=== PATIENT | male | born 1965 | race African-American/Black ===

== ENCOUNTER 2023-07-11 18:09 | Emergency (ER) | payer BC, SELFPAY ==
--- NOTE | ~2023-07-11 | CT_ITS ---
EXAMINATION: CT ABDOMEN AND PELVIS WITHOUT CONTRAST CLINICAL INFORMATION: Left lower quadrant abdominal pain radiating to back. COMPARISON: None available. TECHNIQUE: Multidetector volumetric imaging was performed from the superior aspect of the liver through the pubic symphysis. Sagittal and coronal reformatted images were obtained on the technologist's workstation. This CT examination was performed using dose optimization techniques as appropriate, variously including the following: *Automated exposure control *Adjustment of mA and/or kV according to patient size (this includes techniques or standardized protocols for targeted exams where dose is matched to indication/reason for exam; i.e. extremities or head) *Use of iterative reconstruction technique DLP: 620 mGy-cm FINDINGS: LUNG BASES: There is a 3 mm nodule thickening along the right minor fissure. The lung bases are clear. There is mild elevation left hemidiaphragm. Heart size is normal with mild to moderate coronary artery calcifications. LIVER, GALLBLADDER, AND BILIARY TREE: The liver is normal in size, shape, and attenuation. There is an ill-defined hypodensity left hepatic lobe.. The gallbladder is unremarkable with no evidence of radiopaque gallstones, gallbladder wall thickening, or obvious pericholecystic inflammatory changes. PANCREAS: Unremarkable. SPLEEN: Unremarkable. ADRENAL GLANDS: Unremarkable. KIDNEYS AND URETERS: The kidneys are normal in size, shape, and attenuation. No hydronephrosis, hydroureter, or calculi seen. No perinephric stranding. There is a 4.6 cm hypodensity consistent with a simple cyst. No further workup needed. BLADDER: Unremarkable. GASTROINTESTINAL TRACT: There is scattered stool, diverticula and gas seen throughout the colon without significant distention. The small bowel loops are normal caliber. Appendix is normal caliber. No inflammatory process or free fluid seen. ABDOMINAL WALL: No significant hernia is appreciated. LYMPH NODES: Normal. VASCULAR: Unremarkable. PELVIC VISCERA: Unremarkable. OSSEOUS STRUCTURES: Unremarkable. CT/CT abdomen pelvis wo IV con IMPRESSION: 1. No acute intra-abdominal process seen. 2. Colonic diverticulosis without diverticulitis. Mild constipation. 3. No radiopaque urolith or hydroureteronephrosis. 4. There is an ill-defined hypodensity left hepatic lobe. Correlate with ultrasound Fleischner guidelines were followed.
[2023-07-11 18:30] VITALS: BP 170/88; PULSE 72; RESP 18; TEMP 36.7; O2SAT 95; BMI 32.7
--- NOTE | 2023-07-11 18:30 | ED_ITS ---
HPI - Abdominal Pain General Chief Complaint: General Medical Stated Complaint: referred by UC for abd pain Time Seen by Provider: 07/11/23 21:14 Source: patient Mode of arrival: ambulatory Limitations: no limitations History of Present Illness HPI narrative: Patient with no significant past medical history noticed abdominal pain in the left upper quadrant with pain in back last 10 days actual onset increases on movement no nausea no vomiting no diarrhea no constipation patient also noticed small rash in the back few days ago. Denies any kidney stone no urinary complaints no fever no chills patient never had similar pain in the past Related Data Previous Rx's Medication Instructions Recorded tramadol 50 mg tablet 50 mg PO Q6H PRN pain #20 tabs 07/11/23 Allergies Allergy/AdvReac Type Severity Reaction Status Date / Time No Known Allergies Allergy Verified 07/11/23 18:29 Review of Systems Review of Systems Yes all other systems are reviewed and are negative [facility] Social History Social History Advance Directives: No Advance Directives Information Provided: No Physical Exam ED Vital Signs: Vital Signs - 24 hr 07/11/23 18:30 Temperature 98.1 F Pulse Rate 72 Respiratory Rate 18 Blood Pressure 170/88 H Pulse Oximetry 95 Oxygen Delivery Method Room Air BMI result Body Mass Index 32.7 Appearance: Alert. Oriented X3. No acute distress. Eyes: PERRLA, No Nystagmus ENT: Pharynx normal. Oral Mucosa moist Neck: Normal inspection. Neck supple. CVS: Normal heart rate and rhythm. Pulses normal. Respiratory: No respiratory distress. Equal air entry bilateral, no wheezing/rales/rhonchi Abdomen: Soft, mild deep tenderness left upper abdomen no guarding no rebound tenderness Bowel sounds are present, no mass palpable, no CVA tenderness Skin: Skin warm and dry. Small scratch duc at the left lumbar area no vesicle Extremities: No lower extremity edema. No calf tenderness Neuro: Oriented X 3. Course Course Course Narrative: RME: 58 year-old M w/ PMHx hernia presenting to the ED c/o LLQ abdominal pain radiating to back x 1.5wks ago. Pain is constant. +urinary frequency. Also reports rash, admits pain started before rash. Was sent in by Urgent Care who also recommended STD testing. denies fever, N/V/D, hematuria, dysuria + LLQ abdominal tenderness, +crusting/erythematous rash to L low back, not crossing midline ?shingles Labs, UA, CT NG, CT AP, viral testing ordered Full HPI, ROS and PE to be performed by primary ED provider. Medical Decision Making Medical Decision Making [facility] Narrative: Patient with nonspecific left upper abdominal pain and back pain likely referred pain from the back CT scan negative for acute, discharge patient home on tramadol pain management Differential Diagnosis Differential Diagnoses: The differential diagnosis associated with the presentation includes Kidney stone/diverticulitis/muscular pain/lumbar strain/UTI Lab Data [facility] Lab Attestation statement: I reviewed the patient's lab results. 07/11/23 19:12 07/11/23 19:12 Labs: Lab Results 07/11/23 Range/Units 19:12 WBC 7.1 (4.8-10.8) X10*3/uL RBC 4.45 L (4.60-5.80) X10*6/uL Hgb 13.5 L (14.0-18.0) g/dl Hct 39.7 L (42.0-52.0) % MCV 89.2 (80.0-98.0) fL MCH 30.3 (27.0-33.0) pg MCHC 34.0 (31.0-36.0) g/dl RDW 13.3 (11.0-16.0) % Plt Count 219 (160-400) X10*3/uL MPV 10.1 (9.4-12.4) fL Immature Gran % (Auto) 0.1 (0.0-0.4) % Neut % (Auto) 64.1 (45-73) % Lymph % (Auto) 17.6 L (20-40) % [place] % (Auto) 15.9 H (2-11) % Eos % (Auto) 1.7 (0-4) % Baso % (Auto) 0.6 (0-2) % Lymph # (Auto) 1.3 (1.2-4.9) X10*3/uL [place] # (Auto) 1.1 (0.1-1.2) X10*3/uL Eos # (Auto) 0.1 (0.0-0.4) X10*3/uL Baso # (Auto) 0.0 (0.0-0.2) X10*3/uL Abs Immat Gran (auto) 0.01 (0.00-0.03) X10*3/uL Absolute Neuts (auto) 4.6 (2.0-8.3) x10*3/uL Absolute Nucleated RBC 0.000 (0.0-0.012) X10*3/uL Nucleated RBC % (auto) 0.0 (0.0-0.2) /100WBC Sodium 140 (135-145) mmol/L Potassium 4.3 (3.3-5.1) mmol/L Chloride 108 (96-108) mmol/L Carbon Dioxide 24 (22-29) mmol/L Anion Gap 12 (12-20) BUN 15 (9-16) mg/dL Creatinine 1.01 (0.5-1.4) mg/dL Estim Creat Clear Calc 85.3 Estimated GFR > 60 Random Glucose 84 (60-115) mg/dL Calcium 9.5 (8.4-10.2) mg/dL Magnesium 2.0 (1.6-2.6) mg/dL Total Bilirubin 0.3 (0.0-1.0) mg/dL Direct Bilirubin 0.1 (0.0-0.5) mg/dL AST 49 H (5-37) U/L ALT 22 (0-40) U/L Alkaline Phosphatase 63 (39-117) U/L Total Protein 7.7 (6.5-8.0) g/dL Albumin 4.0 (3.5-5.0) g/dL Lipase 41 (8-78) U/L Urine Color Yellow Urine Appearance Clear Urine pH 5.5 (5.0-9.0) Ur Specific [place] 1.025 (1.005-1.025) Urine Protein Negative (Neg-Trace) mg/dL Urine Glucose (UA) Negative (Negative) mg/dL Urine Ketones Trace (Negative) mg/dL Urine Blood Negative (Negative) Urine Nitrite Negative (Negative) Ur Leukocyte Esterase Negative (Negative) COVID-19 ([place]) Negative (Negative) COVID-19 Clin Com See Note Influenza Type A (ERIC) Negative (Negative) Influenza Type B (ERIC) Negative (Negative) Influenza A & B Note See Note Independent Interpretation I performed an independent interpretation of an: CT Scan Radiology Impression Discussion of test interpretation with radiology: I have reviewed the radiologist's reading. Discharge Plan Discharge Clinical Impression: Abdominal pain of unknown cause Patient Disposition: Home, Self-Care Instructions: Abdominal Pain (ED) Additional Instructions: Cause of pain is not clear likely musculoskeletal come from the back Your CT scan of the abdomen did not show any acute pathology Take pain medication as prescribed Follow-up with PCP if any concerns Keep an eye on the rash in the back seek attention come in will apply bacitracin at the rash and do not scratch Prescriptions: New tramadol 50 mg tablet 50 mg PO Q6H PRN (Reason: pain) Qty: 20 0RF
[2023-07-11 19:18] LABS: MANUAL DIFF FLAG NO
[2023-07-11 19:20] LABS: Basophils Percent Auto 0.6 % (0-2); Eosinophils Absolute Auto 0.1 X10*3/uL (0.0-0.4); Eosinophils Percent Auto 1.7 % (0-4); Hematocrit 39.7 % (42.0-52.0); Hemoglobin 13.5 g/dl (14.0-18.0); Imm Gran Abs Auto 0.01 X10*3/uL (0.00-0.03); Imm Gran Pct Auto 0.1 % (0.0-0.4); Lymphocytes Absolute Auto 1.3 X10*3/uL (1.2-4.9); Lymphocytes Percent Auto 17.6 % (20-40); Mean Corpuscular Hemoglobin 30.3 pg (27.0-33.0); Mean Corpuscular Volume 89.2 fL (80.0-98.0); Mean Platelet Volume 10.1 fL (9.4-12.4); Monocytes Absolute Auto 1.1 X10*3/uL (0.1-1.2); Monocytes Percent Auto 15.9 % (2-11); Neutrophils Absolute Auto 4.6 x10*3/uL (2.0-8.3); Neutrophils Percent Auto 64.1 % (45-73); Platelet Count 219 X10*3/uL (160-400); Red Blood Count 4.45 X10*6/uL (4.60-5.80); Red Cell Distribution Width 13.3 % (11.0-16.0); White Blood Count 7.1 X10*3/uL (4.8-10.8)
[2023-07-11 19:21] LABS: Appearance Urine Clear; Color Urine Yellow; Glucose Urine UA Negative (Negative); Leukocyte Esterase Urine Negative (Negative); Nitrite Urine Negative (Negative); PH 5.5 (5.0-9.0); Specific Gravity - Urine 1.025 (1.005-1.025); Urine Blood Negative (Negative); Urine Ketones Trace mg/dL (Negative); Urine Protein Negative (Neg-Trace)
[2023-07-11 19:34] LABS: IDNOW Serial# 08D9AD1C; Influenza A Negative (Negative); Influenza B2 Negative (Negative)
[2023-07-11 19:35] LABS: Alanine Aminotransferase 22 U/L (0-40); Alkaline Phosphatase 63 U/L (39-117); Anion Gap 12 (12-20); Aspartate Amino Transferase 49 U/L (5-37); Bilirubin Direct 0.1 mg/dL (0.0-0.5); Bilirubin Total 0.3 mg/dL (0.0-1.0); Blood Urea Nitrogen 15 mg/dL (9-16); COVID-19 Test Negative (Negative); Calcium 9.5 mg/dL (8.4-10.2); Carbon Dioxide 24 mmol/L (22-29); Chloride 108 mmol/L (96-108); Creatinine Clr Calc Pharmacy 85.3; Estimated Glomerular Filt Rate > 60; Glucose Random 84 mg/dL (60-115); IDNOW Serial# 152EDE1D; Lipase 41 U/L (8-78); Potassium 4.3 mmol/L (3.3-5.1); Sodium 140 mmol/L (135-145); Total Protein 7.7 g/dL (6.5-8.0)
[2023-07-11] MEDS: oxyCODONE HCl Immed Release 5 MG TABLET 10 MG PO (22:01)
[2023-07-11] MEDS: Bacitracin Oint 0.9 GM PACKET 1 APPL TOPICAL (22:01)
--- NOTE | 2023-07-11 22:04 | PC.NURSE ---
Primary Nurse is was Rima, this RN only reviewed discharge instructions with pt and medicated pt per primary nurse Rima, no sign of distress.
[2023-07-12 01:18] LABS: CT PCR NOT DETECTED (Not Detect.); NG PCR NOT DETECTED (Not Detect.)
== END 2023-07-11 22:12 | disposition home or self-care (01) ==
PROVIDERS: Physician Assistant; Emergency Provider Internal Medicine
DX: R10.12 Left upper quadrant pain (principal); Z11.52 Encounter for screening for COVID-19; R35.0 Frequency of micturition; R21 Rash and other nonspecific skin eruption; R74.01 Elevation of levels of liver transaminase levels
CPT/HCPCS: 0353U; 36415; 74176; 80048; 80076; 81003; 83690; 83735; 85025; 87502; 87635; 99283; 99284

== ENCOUNTER 2023-07-14 10:32 | Inpatient (IN) | payer BC, SELFPAY ==
[2023-07-14] VITALS (11 sets, daily range): BP systolic 153–178; BP diastolic 83–101; PULSE 72–86; RESP 18–24; TEMP 36.1–39.4; O2SAT 92–97; BMI 32.3; BMI 33.1
--- NOTE | ~2023-07-14 | XR_ITS ---
EXAMINATION: XR CHEST CLINICAL INFORMATION: Seizure with fall of abdominal trauma COMPARISON: None available. TECHNIQUE: AP portable view of the chest was obtained. FINDINGS: There is elevation of the left hemidiaphragm. There is some discoid atelectatic change seen at the left lung base. The cardiopericardial silhouette appears mildly enlarged. No evidence of pulmonary edema. No pneumothorax or significant pleural effusion. XR/XR chest 1V IMPRESSION: Elevation of the left hemidiaphragm without significant acute parenchymal disease appreciated.
--- NOTE | ~2023-07-14 | CT_ITS ---
EXAMINATION: CT HEAD WITHOUT CONTRAST CT CERVICAL SPINE WITHOUT CONTRAST CLINICAL INFORMATION: Syncope. Fall. COMPARISON: None available. TECHNIQUE: Contiguous axial imaging was performed from the skull base to vertex without intravenous administration of contrast. Contiguous axial imaging was performed from the upper chest through the skull base without intravenous administration of contrast. Coronal and sagittal reformats were obtained at the acquisition workstation. This CT examination was performed using dose optimization techniques as appropriate, variously including the following: *Automated exposure control. *Adjustment of mA and/or kV according to patient size (this includes techniques or standardized protocols for targeted exams where dose is matched to indication/reason for exam; i.e. extremities or head). *Use of iterative reconstruction technique. DLP: 1472 mGy-cm FINDINGS: Head: There is no evidence of acute intracranial hemorrhage or edematous territorial infarction. Canalse-white matter differentiation is preserved. There appears to be a hyperattenuating streak coursing along/through the lateral aspect of the left cerebellar hemisphere. This does not not follow a specific anatomic structure suggestive of artifact versus an underlying developmental venous anomaly. A few foci of hypoattenuation in the periventricular and deep white matter are consistent with mild microangiopathy. The ventricles are normal in morphology and size. No evidence for obstructive hydrocephalus. No abnormal mass effect or midline shift. No extra-axial fluid collections. Mild prominence of the superior ophthalmic veins bilaterally. Moderate subgaleal hematoma along the right posterior vertex, measuring up to 1.1 cm in depth. No associated acute osseous abnormalities. Mild mucosal thickening of the paranasal sinuses. Moderate rightward nasal septal deviation with spurring. The mastoid air cells and middle ear cavities are clear. Cervical Spine: Rotary subluxation of C1 on C2, commiserate with head rotation. The atlantooccipital and atlantoaxial articulations remain well aligned. Straightening of the normal cervical lordosis. Otherwise, there is anatomic alignment of the vertebral bodies and posterior elements. No evidence of acute fracture or subluxation. The vertebral body heights are maintained. Advanced degenerative disc disease from C3-T1. Moderate degenerative disc disease at C2-C3. Facet and uncovertebral joint arthropathy leads to osseous encroachment on the neural foramina from C3-T1. There is no prevertebral soft tissue swelling. The thyroid gland and remaining cervical soft tissues are within normal limits. The lung apices demonstrate no abnormalities. CT/CT cervical spine wo IV con IMPRESSION: 1. No evidence of acute intracranial hemorrhage or edematous territorial infarction. Mild underlying microangiopathy. 2. No evidence of acute fracture or traumatic subluxation of the cervical spine. Moderate to advanced multilevel degenerative spondyloarthropathy of the cervical spine. 3. Moderate right posterior scalp hematoma. No associated osseous abnormalities.
--- NOTE | ~2023-07-14 | CT_ITS ---
EXAMINATION: CT ABDOMEN AND PELVIS WITH CONTRAST CLINICAL INFORMATION: Pain in abdomen following trauma COMPARISON: 07/11/2023 TECHNIQUE: Multidetector volumetric images were obtained from the superior aspect of the liver through the pubic symphysis following administration 85 mL of Omnipaque 350 intravenous contrast. Sagittal and coronal reformatted images were obtained on the technologist's workstation. Oral contrast: No This CT examination was performed using dose optimization techniques as appropriate, variously including the following: *Automated exposure control *Adjustment of mA and/or kV according to patient size (this includes techniques or standardized protocols for targeted exams where dose is matched to indication/reason for exam; i.e. extremities or head) *Use of iterative reconstruction technique DLP: 871 mGy-cm FINDINGS: LUNG BASES: The visualized lung bases are unremarkable. LIVER, GALLBLADDER, AND BILIARY TREE: Liver is of low attenuation with small cyst in the left lobe of the liver no intrahepatic masses or ductal dilatation. Of The gallbladder is unremarkable with no evidence of radiopaque gallstones, gallbladder wall thickening, or obvious pericholecystic inflammatory changes. PANCREAS: Unremarkable. SPLEEN: Unremarkable. ADRENAL GLANDS: Unremarkable. KIDNEYS AND URETERS: There is cyst in the lower pole stable since previous study, measured 4.8 x 4.0 cm. No evidence of hydroureteronephrosis or nephrolithiasis. BLADDER: Unremarkable. GASTROINTESTINAL TRACT: There are scattered diverticula seen No evidence of diverticulitis. Normal appendix present. Small bowel loops are unremarkable. ABDOMINAL WALL: No evidence of herniations. LYMPH NODES: Mild reactive appearing lymphadenopathy seen in inguinal area bilaterally. VASCULAR: Unremarkable. PELVIC VISCERA: Prostate is enlarged and heterogeneous. OSSEOUS STRUCTURES: Degenerative changes in the lower lumbar spine CT/CT abdomen pelvis w IV con IMPRESSION: 1. No acute abnormalities. 2. Hepatic steatosis. 3. Left renal cyst. 4. Diverticulosis without diverticulitis. 5. Prostatic hypertrophy. Fleischner guidelines were followed.
--- NOTE | ~2023-07-14 | CT_ITS ---
EXAMINATION: CT CHEST WITH CONTRAST CLINICAL INFORMATION: Fall with chest trauma. COMPARISON: None available. TECHNIQUE: Multidetector volumetric CT imaging of the chest was obtained after the administration of 85 mL of Omnipaque 350 intravenous contrast without immediate adverse reactions. Axial MIP volume rendering provided. Sagittal and coronal reformatted images were obtained. This CT examination was performed using dose optimization techniques as appropriate, variously including the following: *Automated exposure control. *Adjustment of mA and/or kV according to patient size (this includes techniques or standardized protocols for targeted exams where dose is matched to indication/reason for exam; i.e. extremities or head). *Use of iterative reconstruction technique. DLP: 257.67 mGy-cm FINDINGS: There is motion artifact throughout the study somewhat limiting evaluation. LUNGS: Central airways are patent. No significant confluent parenchymal disease is identified. There is some atelectasis within the left lower lobe. I cannot comment on parenchymal thickening or possible bronchiectasis due to the breathing artifact. There are a few sub-4 mm densities present. There is a 4 mm density seen along the minor fissure in the right upper lobe on image [address] scan series #7 which may represent a perifissural lymph node. MEDIASTINUM: There is some elevation of the left hemidiaphragm causing mild mediastinal shift to the right. Visualized thyroid unremarkable. Heart normal size. No pericardial effusion. Coronary artery calcification is present. No thoracic aortic aneurysm or dissection. No mediastinal or hilar lymphadenopathy. PLEURA: There is no pleural effusion. No pleural mass or thickening. AXILLA: No lymphadenopathy. UPPER ABDOMEN: There is appearance of low-density lesion within segment 6 of the liver; however, this appears to be related to breathing artifact. Elevation of left hemidiaphragm. OSSEOUS STRUCTURES: No suspicious destructive bony lesions identified. Old healed right second rib fractures seen. Multilevel degenerative disc disease with bridging spurs at multiple levels within the thoracic spine. CT/CT chest w IV con IMPRESSION: Somewhat limited study due to motion artifact. Elevation of the left hemidiaphragm. No acute fracture or destructive bony lesion identified. No pneumothorax or pleural effusion. According to the UPDATED 2017 Fleischner Society recommendations, the advised follow-up imaging for solid nodules < 6 mm is: LOW RISK PATIENT: No routine follow-up. HIGH RISK PATIENT: Optional CT at 12 months. Fleischner guidelines were followed.
--- NOTE | 2023-07-14 11:06 | ED_ITS ---
HPI - Skin/Abscess/Foreign Bdy General Chief complaint: Skin/Abscess/Foreign Body Stated complaint: rash/ R side pain Time Seen by Provider: 07/14/23 11:19 Source: patient Mode of arrival: ambulatory Limitations: no limitations History of Present Illness HPI narrative: This is a 58-year-old male with no known medical history however not regularly followed by a primary care provider representing to the emergency department after being discharged minutes ago. Patient presents after having a witnessed 30 second tonic-clonic seizure, patient was walking out of the department, started seizing, fell, hit his head positive loss of consciousness. Patient was postictal afterwards. Complaining of headache. Immediately when this happened nursing staff and front end provider out to evaluate patient, he was placed in a cervical collar, hard board was used to transfer patient to stretcher and he immediately went to CT scan. He was just seen here for shingles on the left side of his back. Per significant other patient was also seen here on Sunday for some abdominal discomfort. Patient just has not been feeling himself he tells me something is just not right. Patient not on blood thinners. Denies chest pain, shortness of breath, nausea, vomiting, headache, vision changes, dizziness, weakness, abdominal pain. NIH stroke scale 0. GCS of 15 on evaluation Related Data Home Medications Medication Instructions Recorded Confirmed albuterol sulfate 90 mcg/actuation 2 puff inhalation QID PRN wheezing 07/14/23 07/14/23 aerosol inhaler Previous Rx's Medication Instructions Recorded gabapentin 100 mg capsule 100 mg PO TID 10 days #30 caps 07/14/23 prednisone 20 mg tablet 40 mg (2 x 20 mg) PO DAILY 5 days 07/14/23 #10 tabs valacyclovir 1 gram tablet 1,000 mg PO TID 10 days #30 tabs 07/14/23 Allergies Allergy/AdvReac Type Severity Reaction Status Date / Time No Known Allergies Allergy Verified 07/14/23 11:01 Review of Systems 2 Review of Systems: Constitutional : No Weight loss, No Fever, No Chills, No Fatigue, No Malaise ENT/Mouth : No sore throat, No Rhinorrhea Eyes: No Eye Pain, No Swelling, No Redness Cardiovascular : No Chest Pain, No SOB, No Dyspnea on Exertion, No Orthopnea, No Edema, No Palpitations Respiratory : No Cough, No Sputum, No Wheezing Gastrointestinal : No Nausea, No Vomiting, No Diarrhea, No Constipation, No abdominal Pain, No Hematochezia, No Melena Genitourinary : No Dysuria, No Urinary Frequency, No Hematuria, Musculoskeletal : No joint pain, No Myalgias, No Joint Swelling Skin : No Skin Lesions, No rash Neuro : No Weakness, No Numbness, No Dizziness, + Headache Psych : No Anxiety/Panic, No Depression All other systems reviewed and are negative Yes all other systems are reviewed and are negative [facility] Past Medical History Attestation statement: The following information was validated with the patient. Source: old records reviewed and nursing notes reviewed Onset Date is defined in the Problem List Problems that require an onset date and time if occurred within 24 hrs of arrival to the ED Aortic Dissection and Rupture; Neurologic impairment; Cardiopulmonary Arrest; Endotracheal Intubation; Insertion or Replacement of Mechanical Circulatory Assist Device Medical History No pertinent past medical history Social History Social History Household Members: Children Housing: House Do you presently have visiting nurse or other home services: No Alcohol intake: current Alcohol intake frequency: holidays/special occasions only Patient Tobacco Use Status: Never used Tobacco Smoked in Last 30 Days: No Use of substances other than those prescribed or required for medical reasons: Yes Substance Use Type: Marijuana Substance Use Frequency: Daily Currently Displaying Signs/Symptoms of Drug Intoxication Withdrawal: No Any prior treatment program specific to substance use: No Have you been hit, kicked, punched, or otherwise hurt by someone within the past year? If so, by whom?: No Do you feel safe in your current relationship?: No Current Relationship Is there a partner from a previous relationship who is making you feel unsafe now?: No Are you made to feel afraid or neglected: No Advance Directives: No Advance Directives Information Provided: No Do you have thoughts of harming others: None Do you have a plan to hurt others: No Plan Recently lost weight without trying: No Nutrition Risks: No Nutritional Risk Poor oral hygiene: No Physical Exam 2 Vital Signs: Vital Signs: Last Vital Signs Temp 96.9 F 07/14/23 21:38 Pulse 72 07/14/23 21:38 Resp 18 01/13/24 21:38 BP 176/84 H 07/14/23 21:38 Pulse Ox 94 07/14/23 21:38 O2 Del Method Room Air 07/14/23 21:38 BMI result Body Mass Index 32.3 vss Appearance: Alert.? Oriented X3.? No acute distress.? Head: Normocephalic, atraumatic, no step-offs or deformities. Large hematoma right side of the occiput region. Eyes: Pupils equal, round and reactive to light.? ENT: Pharynx normal.? Neck: Normal inspection.? Neck supple.?No meningeal signs CVS: Normal heart rate and rhythm.? Pulses normal.? Respiratory: No respiratory distress.? Breath sounds normal.? Abdomen: Soft and nontender.? + dermatomal distribution of vesicles on an erythematous base, tender to palpation wrapping around to the back around T10 Skin: Skin warm and dry.? Normal skin color.? Normal skin turgor.? Extremities: No lower extremity edema.? No calf ttp. 5/5 strength to bilateral upper and lower extremities Back: No midline tenderness, no C-spine tenderness, full range of motion, no CVA tenderness bilaterally Neuro: Oriented X 3.? No motor deficit.? No sensory deficit. CN 2-12 intact Course Course Course Narrative: This is a 58-year-old male, with no known medical problems but does not regularly see a doctor, present to the emergency department with complaints of painful, itchy rash on his left flank since July 10. On arrival, vital signs within normal limits, he denies any chest pain, shortness for breath, headaches, dizziness, lightheadedness, abdominal pain, nausea, vomiting or diarrhea. He denies history of similar symptoms in the past. Examination revealing vesicular cluster like rash on left flank that is tender to palpation, no surrounding erythema or induration. Rash appears to be herpes zoster. I discussed these findings with patient and . Patient was discharged with a prescription for valacyclovir, gabapentin, and prednisone. Patient then was leaving the waiting room when suddenly I heard a large noise where I immediately reported to the area and patient was on his back, unresponsive but had a pulse, appeared to have a syncopal episode followed by seizure-like activity for approximately 30 seconds. He was placed in a cervical collar and we will obtain to bed using a backboard and he immediately reported back into ED room 5 for further evaluation and workup. Reevaluation(s) Reevaluation #1: Clarification- per staff who witnessed event sounds like syncope followed by seizure after trauma. Time: 12:05 Reevaluation #2: CBC unremarkable. Chemistry with slight increase in creatinine fluids ordered. Troponin 16.7 repeat troponin pending. EKG nonischemic. Normal coags i dont suspect PE. CT head with a moderate right posterior scalp hematoma no associated osseous injuries. No evidence of acute fracture traumatic subluxation of the cervical spine. Left hemidiaphragm elevated CT chest, abdomen and pelvis pending. Plan is hospital admission. Some scans are still pending. Dr. Donnelly hospitalist aware Time: 15:36 Reevaluation #3: My attending to take over this case Dr. Colbert. Hospitalist aware. Medications Administered Generic Name Dose Route Start Last Admin Trade Name Freq PRN Reason Stop Dose Admin Gabapentin 100 mg 07/14/23 21:00 07/14/23 21:11 Gabapentin 100 Mg Capsule PO 100 mg TID TYRONE Administration Sodium Chloride 1,000 mls @ 100 mls/hr 07/14/23 16:00 07/14/23 17:37 Ns IVCONT 100 mls/hr .Q10H TYRONE Administration Acyclovir Sodium 750 mg/ 265 mls @ 265 mls/hr 07/14/23 20:00 07/14/23 21:39 Sodium Chloride IV Infused Q8H TYRONE Infusion Prednisone 40 mg 07/14/23 16:05 07/14/23 16:41 Prednisone 20 Mg Tablet PO 40 mg DAILY TYRONE Administration Sodium Chloride 3 ml 07/14/23 16:00 07/14/23 21:12 0.9 % Sodium Chloride Flush 3 Ml Syringe IVFLUSH 3 ml QSHIFT TYRONE Administration Discontinued Medications Generic Name Dose Route Start Last Admin Trade Name Freq PRN Reason Stop Dose Admin Acetaminophen 975 mg 07/14/23 16:18 07/14/23 16:41 Acetaminophen 325 Mg Tablet PO 07/14/23 16:19 975 mg ONCE ONE Administration Acetaminophen 650 mg 07/14/23 18:15 07/14/23 18:30 Acetaminophen 325 Mg Tablet PO 07/14/23 18:16 650 mg ONCE ONE Administration Sodium Chloride 1,000 mls @ 999 mls/hr 07/14/23 15:45 07/14/23 17:37 Ns IV 07/14/23 16:45 Infused .Q1H1M TYRONE Infusion Vancomycin HCl 2,000 mg in 520 mls @ 250 mls/hr 07/14/23 16:26 07/14/23 19:51 Vancomycin/Ns IV 07/14/23 18:30 Infused ONCE ONE Infusion Iohexol 85 ml 07/14/23 14:27 07/14/23 14:28 Iohexol 350 Mg/Ml 100 Ml Infus..Btl IV 07/14/23 14:28 85 ml ONCE ONE Administration Lidocaine HCl 5 ml 07/14/23 19:02 07/14/23 20:21 Lidocaine Hcl 1 % Mpf 5 Ml Vial INFILTRATI 07/14/23 19:03 5 ml ONCE ONE Administration Lorazepam 2 mg 07/14/23 11:37 07/14/23 11:54 Lorazepam 2 Mg/Ml Vial IVPUSH 07/14/23 11:38 2 mg ONCE ONE Administration Medical Decision Making Medical Decision Making [facility] Narrative: 58-year-old male presents status post witnessed seizure. Was just seen here for shingle Physical exam significant for rash in a dermatomal fashion T10 to his left side and a large occipital hematoma History and physical exam concerning for new onset seizures likely in the setting of acute viral illness. Will rule out metabolic derangements, urinary infection. Intracranial hemorrhage, traumatic injury to neck. No signs of traumatic injury to chest, abdomen or pelvis. Unlikely meningitis/encephalitis Plan- labs,imaging 17:30 patient with vesicular lesion on the left side of the abdomen and the back in a dermatomal fashion also has lesion in the left inguinal area possible staph infection in the inguinal area with shingles samples were taken for culture from inguinal area sudden vancomycin had a temperature of 102.7 was given Tylenol will give ibuprofen case discussed with hospitalist will doze spinal tap to rule out a septic spinal meningitis 193 spinal tap was done in sitting position L4 aseptic clear fluid drainined and sent to the lab Differential Diagnosis Differential Diagnoses: The differential diagnosis associated with the presentation includes History and physical exam concerning for new onset seizures likely in the setting of acute viral illness. Will rule out metabolic derangements, urinary infection. Intracranial hemorrhage, traumatic injury to neck. No signs of traumatic injury to chest, abdomen or pelvis. Unlikely meningitis/encephalitis Admission/Observation Consideration of admission/observation: Escalation of care including admission/observation considered Likely Consult Healthcare Provider Management of the patient was discussed with: Hospitalist Lab Data MDM Lab Attestation statement: I reviewed the patient's lab results. CSF positive for varicella zoster 07/14/23 11:51 07/14/23 11:51 Labs: Lab Results 07/14/23 07/14/23 Range/Units 11:44 11:51 WBC 8.2 (4.8-10.8) X10*3/uL RBC 4.83 (4.60-5.80) X10*6/uL Hgb 14.5 (14.0-18.0) g/dl Hct 43.4 (42.0-52.0) % MCV 89.9 (80.0-98.0) fL MCH 30.0 (27.0-33.0) pg MCHC 33.4 (31.0-36.0) g/dl RDW 13.3 (11.0-16.0) % Plt Count 202 (160-400) X10*3/uL MPV 10.2 (9.4-12.4) fL Immature Gran % (Auto) 0.2 (0.0-0.4) % Neut % (Auto) 59.9 (45-73) % Lymph % (Auto) 25.1 (20-40) % [place] % (Auto) 14.0 H (2-11) % Eos % (Auto) 0.2 (0-4) % Baso % (Auto) 0.6 (0-2) % Lymph # (Auto) 2.1 (1.2-4.9) X10*3/uL [place] # (Auto) 1.2 (0.1-1.2) X10*3/uL Eos # (Auto) 0.0 (0.0-0.4) X10*3/uL Baso # (Auto) 0.1 (0.0-0.2) X10*3/uL Abs Immat Gran (auto) 0.02 (0.00-0.03) X10*3/uL Absolute Neuts (auto) 4.9 (2.0-8.3) x10*3/uL Absolute Nucleated RBC 0.000 (0.0-0.012) X10*3/uL Nucleated RBC % (auto) 0.0 (0.0-0.2) /100WBC Smear Tech's Comments VERIFIED ESR 16 H (0-15) MM/HR PT 13.5 H (11.1-13.3) SEC INR 1.1 (0.9-1.1) Sodium 137 (135-145) mmol/L Potassium 3.8 (3.3-5.1) mmol/L Chloride 106 (96-108) mmol/L Carbon Dioxide 22 (22-29) mmol/L Anion Gap 13 (12-20) BUN 14 (9-16) mg/dL Creatinine 1.49 H (0.5-1.4) mg/dL Estim Creat Clear Calc 55.6 Estimated GFR 48 POC Glucose 107 (60-115) mg/dL Random Glucose 117 H (60-115) mg/dL Calcium 9.2 (8.4-10.2) mg/dL Total Bilirubin 0.7 (0.0-1.0) mg/dL Direct Bilirubin 0.2 (0.0-0.5) mg/dL AST 50 H (5-37) U/L ALT 21 (0-40) U/L Alkaline Phosphatase 63 (39-117) U/L Troponin I High Sens 16.7 (<3.5-35.0) ng/L C-Reactive Protein 0.43 (< or = 0.50) mg/dL Total Protein 7.7 (6.5-8.0) g/dL Albumin 4.1 (3.5-5.0) g/dL Independent Interpretation I performed an independent interpretation of an: EKG (Vent. Rate : 073 BPM Atrial Rate : 073 BPM P-R Int : 192 ms QRS Dur : 092 ms QT Int : 386 ms P-R-T Axes : 058 -11 066 degrees QTc Int : 425 ms Normal sinus rhythm Inferior infarct , age undetermined Abnormal ECG No previous ECGs available), Plain X-Ray (XR/XR chest 1V IMPRESSION: Elevation of the left hemidiaphragm without significant acute parenchymal disease appreciated.) and CT Scan (CT/CT head/brain wo IV con IMPRESSION: 1. No evidence of acute intracranial hemorrhage or edematous territorial infarction. Mild underlying microangiopathy. 2. No evidence of acute fracture or traumatic subluxation of the cervical spine. 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 Radiologist Impression: XR/XR chest 1V IMPRESSION: Elevation of the left hemidiaphragm without significant acute parenchymal disease appreciated. CT/CT head/brain wo IV con IMPRESSION: 1. No evidence of acute intracranial hemorrhage or edematous territorial infarction. Mild underlying microangiopathy. 2. No evidence of acute fracture or traumatic subluxation of the cervical spine. Moderate to advanced multilevel degenerative spondyloarthropathy of the cervical spine. 3. Moderate right posterior scalp hematoma. No associated osseous abnormalities. CT/CT cervical spine wo IV con IMPRESSION: 1. No evidence of acute intracranial hemorrhage or edematous territorial infarction. Mild underlying microangiopathy. 2. No evidence of acute fracture or traumatic subluxation of the cervical spine. Moderate to advanced multilevel degenerative spondyloarthropathy of the cervical spine. 3. Moderate right posterior scalp hematoma. No associated osseous abnormalities. Chronic Conditions Patient?s care impacted by: Other (poor medical care / not routinely followed by PCP ) Procedures Lumbar Puncture Time Out Performed: Yes Patient Position: upright Skin Prep: Povidone-Iodine 1% Local Anesthetic: lidocaine 2% Amount of anesthesia used (mL): 5 Spinal Needle Gauge: 20G Interspace Used: L3-L4 Fluid Initially Obtained: clear Complications: none Critical Care Time Critical Care Time Critical Care Time: Yes Total Critical Care Time: 45 Attestation: I attest to this time spent taking care of the patient, obtaining history, physical, reviewing labs, imaging, speaking to my attending Discharge Plan Discharge Clinical Impression: Syncope, Seizure, ARCELIA (acute kidney injury), Herpes zoster with meningitis Patient Disposition: Admitted As Inpatient Interventions: Admission Worksheet (ED) Last Done: 07/14/23 20:00
--- NOTE | 2023-07-14 11:20 | PC.NURSE ---
pt was being discharged from triage-came in for rash, seen by PA and disposed to go home- diagnosed with shingles. pt denies sob/chest pain just pain/itchiness on the site of rash-left side of the ribs/abd/back area. Pt just walked into the waiting room, this rn heard large thump noise, pt was found on the ground and having a seizure that lasted about 30seconds, pt did hit head/diaphoretic, pt does not have hx of seizures.
--- NOTE | 2023-07-14 11:30 | ECG_ITS ---
Test Reason : SYNCOPE Blood Pressure : / mmHG Vent. Rate : 073 BPM Atrial Rate : 073 BPM P-R Int : 192 ms QRS Dur : 092 ms QT Int : 386 ms P-R-T Axes : 058 -11 066 degrees QTc Int : 425 ms Normal sinus rhythm Inferior infarct , age undetermined Abnormal ECG No previous ECGs available Referred By: Gretchen Vail Electronically Signed By:ROSY REARDON MD
[2023-07-14] MEDS: LORazepam 2 MG/ML VIAL IVPUSH (11:54)
[2023-07-14 11:55] LABS: Glucose, Whole Blood 107 mg/dL (60-115)
--- NOTE | 2023-07-14 12:03 | PC.NURSE ---
Patient brought to ED [address] with collar in place. Alert and responsive with at bedside. Patient complains of head pain- states pain is not from fall but the same head pain he has had all day. Patient with hematoma to right back side of head. Ice pack applied to site of hemotoma. Seizure pads placed, medicated per augFabiola Matthias, able to follow commands. VSS, nrs on monitor
--- NOTE | 2023-07-14 12:06 | PC.NURSE ---
Per patient has been complaining of headaches. Has htn but does not take medications as prescribed
[2023-07-14 12:09] LABS: Basophils Absolute Auto 0.1 X10*3/uL (0.0-0.2); Basophils Percent Auto 0.6 % (0-2); Eosinophils Percent Auto 0.2 % (0-4); Hematocrit 43.4 % (42.0-52.0); Hemoglobin 14.5 g/dl (14.0-18.0); Imm Gran Abs Auto 0.02 X10*3/uL (0.00-0.03); Imm Gran Pct Auto 0.2 % (0.0-0.4); Lymphocytes Absolute Auto 2.1 X10*3/uL (1.2-4.9); Lymphocytes Percent Auto 25.1 % (20-40); MANUAL DIFF FLAG SCAN; Mean Corpuscular HGB Conc 33.4 g/dl (31.0-36.0); Mean Corpuscular Volume 89.9 fL (80.0-98.0); Mean Platelet Volume 10.2 fL (9.4-12.4); Monocytes Absolute Auto 1.2 X10*3/uL (0.1-1.2); Neutrophils Absolute Auto 4.9 x10*3/uL (2.0-8.3); Neutrophils Percent Auto 59.9 % (45-73); Platelet Count 202 X10*3/uL (160-400); Red Blood Count 4.83 X10*6/uL (4.60-5.80); Red Cell Distribution Width 13.3 % (11.0-16.0); SCAN SMEAR FLAG 1; White Blood Count 8.2 X10*3/uL (4.8-10.8)
[2023-07-14 12:11] LABS: INTERNATIONAL NORM RATIO 1.1 (0.9-1.1); Prothrombin Time 13.5 SEC (11.1-13.3)
[2023-07-14 12:22] LABS: Alanine Aminotransferase 21 U/L (0-40); Albumin Level 4.1 g/dL (3.5-5.0); Alkaline Phosphatase 63 U/L (39-117); Anion Gap 13 (12-20); Aspartate Amino Transferase 50 U/L (5-37); Bilirubin Direct 0.2 mg/dL (0.0-0.5); Bilirubin Total 0.7 mg/dL (0.0-1.0); Blood Urea Nitrogen 14 mg/dL (9-16); Calcium 9.2 mg/dL (8.4-10.2); Carbon Dioxide 22 mmol/L (22-29); Chloride 106 mmol/L (96-108); Creatinine Clr Calc Pharmacy 55.6; Estimated Glomerular Filt Rate 48; Glucose Random 117 mg/dL (60-115); Potassium 3.8 mmol/L (3.3-5.1); Sodium 137 mmol/L (135-145); Total Protein 7.7 g/dL (6.5-8.0)
[2023-07-14 12:29] LABS: SLIDE REVIEW VERIFIED; Troponin-I High Sensitivity 16.7 ng/L (<3.5-35.0)
[2023-07-14] MEDS: iohexoL 350 MG/ML 100 ML INFUS..BTL 85 ML IV (14:28)
[2023-07-14] MEDS: 0.9 % Sodium Chloride 1,000 ML 999 ML IV (15:59)
--- NOTE | 2023-07-14 16:15 | P.HPHOSP_ITS ---
History of Present Illness Date of Service: 07/14/23 Chief Complaint: New seizure, Back rash A 58 years old male with no PMH who presents to the hospital for evaluation of back painful rash. He was evaluated few days ago for loin and back pain as well and investigations showed Kidney cyst but he did not have a rash there. he developed vesicular rash on the left side of his L2 level. The patient was witnessed to have 30 sec seizure while leaving the emergency that looked tonic-clonic. He was walking out when he stopped, fell, hit his head and started the seizure. No loss of bowel or urine control. He was post-ictal after the incident. No chest pain, palpitations, SOB, nausea, vomiting, diarrhea or urinary symptoms. A CT scan was done immedietly not showing any evidence of bleeding. Admitted for further evaluation and treatment. Review of Systems 2 Review of Systems: reporting fever, chills and weakness No chest pain, palpitation had congestion and coughing No abdominal pain, nausea or vomiting No urinary symptoms No any rash or wounds [facility] Medical History No pertinent past medical history Social History Household Members: Children Housing: House Do you presently have visiting nurse or other home services: No Alcohol intake: current Alcohol intake frequency: holidays/special occasions only Patient Tobacco Use Status: Never used Tobacco Smoked in Last 30 Days: No Use of substances other than those prescribed or required for medical reasons: Yes Substance Use Type: Marijuana Substance Use Frequency: Daily Currently Displaying Signs/Symptoms of Drug Intoxication Withdrawal: No Any prior treatment program specific to substance use: No Have you been hit, kicked, punched, or otherwise hurt by someone within the past year? If so, by whom?: No Do you feel safe in your current relationship?: No Current Relationship Is there a partner from a previous relationship who is making you feel unsafe now?: No Are you made to feel afraid or neglected: No Advance Directives: No Advance Directives Information Provided: No Do you have thoughts of harming others: None Do you have a plan to hurt others: No Plan Recently lost weight without trying: No Nutrition Risks: No Nutritional Risk Poor oral hygiene: No Meds Allergies Allergy/AdvReac Type Severity Reaction Status Date / Time No Known Allergies Allergy Verified 07/14/23 11:01 Active Medications: Current Medications Sodium Chloride (Ns) 1,000 mls @ 999 mls/hr IV .Q1H1M PENDING SALE TO [facility] Stop: 07/14/23 16:45 Last Admin: 07/14/23 15:59 Dose: 999 mls/hr Lorazepam (Lorazepam 2 Mg/Ml Vial) 2 mg IVPUSH ONCE PRN PRN Reason: Seizures Prednisone (Prednisone 20 Mg Tablet) 40 mg PO DAILY PENDING SALE TO [facility] Valacyclovir HCl (Valacyclovir Hcl 1,000 Mg Tablet) 1,000 mg PO TID PENDING SALE TO [facility] Home Medications Medication Instructions Recorded Confirmed Last Taken Type albuterol sulfate 90 mcg/actuation 2 puff inhalation QID PRN wheezing 07/14/23 07/14/23 Unknown History aerosol inhaler Physical Exam 2 Vital Signs and Narrative: Vital Signs: Last Vital Signs Temp 101.4 F H 07/14/23 16:15 Pulse 76 07/14/23 16:00 Resp 18 07/14/23 16:00 BP 158/83 H 07/14/23 16:00 Pulse Ox 94 07/14/23 16:00 O2 Del Method Room Air 07/14/23 16:00 BMI result Body Mass Index 32.3 Const: Other: Constitutional : Awake, interactive, not in distress Neck : Normal inspection, Supple Cardiovascular : RRR, no JVP, no lower extremity edema Respiratory : good bilateral air entry, no crackles, wheezes or rhonchi Gastrointestinal: soft, lax, Normal bowel sounds, Non tender Skin : Warm, Dry, vesicular rash in his back to left side, no drainage. Inguinal warmth and mild tenderness. Neurological : Alert & oriented x3, moving extremities, no nuchal rigidity or meningeal signs Results Labs 07/15/23 06:34 07/15/23 06:34 Labs: Laboratory Results - last 24 hr 07/14/23 07/14/23 11:44 11:51 MCV 89.9 MCH 30.0 MCHC 33.4 RDW 13.3 Plt Count 202 MPV 10.2 Immature Gran % (Auto) 0.2 Neut % (Auto) 59.9 Lymph % (Auto) 25.1 [place] % (Auto) 14.0 H Eos % (Auto) 0.2 Baso % (Auto) 0.6 Lymph # (Auto) 2.1 [place] # (Auto) 1.2 Eos # (Auto) 0.0 Baso # (Auto) 0.1 Abs Immat Gran (auto) 0.02 Absolute Neuts (auto) 4.9 Absolute Nucleated RBC 0.000 Nucleated RBC % (auto) 0.0 Smear Tech's Comments VERIFIED PT 13.5 H INR 1.1 Anion Gap 13 Estim Creat Clear Calc 55.6 Estimated GFR 48 POC Glucose 107 Random Glucose 117 H Calcium 9.2 Total Bilirubin 0.7 Direct Bilirubin 0.2 AST 50 H ALT 21 Alkaline Phosphatase 63 Total Protein 7.7 Albumin 4.1 Imaging Radiologist's Impressions: Impressions Cervical Spine CT 07/14/23 12:13 IMPRESSION: 1. No evidence of acute intracranial hemorrhage or edematous territorial infarction. Mild underlying microangiopathy. 2. No evidence of acute fracture or traumatic subluxation of the cervical spine. Moderate to advanced multilevel degenerative spondyloarthropathy of the cervical spine. 3. Moderate right posterior scalp hematoma. No associated osseous abnormalities. Head CT 07/14/23 12:13 IMPRESSION: 1. No evidence of acute intracranial hemorrhage or edematous territorial infarction. Mild underlying microangiopathy. 2. No evidence of acute fracture or traumatic subluxation of the cervical spine. Moderate to advanced multilevel degenerative spondyloarthropathy of the cervical spine. 3. Moderate right posterior scalp hematoma. No associated osseous abnormalities. Chest X-Ray 07/14/23 13:47 IMPRESSION: Elevation of the left hemidiaphragm without significant acute parenchymal disease appreciated. Assessment and Plan (1) ARCELIA (acute kidney injury): Status: Acute (2) Seizure: Status: Acute (3) Concussion: (4) Shingles: (5) Fever: Status: Acute Plan A 58 years old male with no PMH who presents to the hospital for evaluation of back painful rash. Fell and had seizure activity in ED. New onset seizure Witnessed event in ED, lasted 30 sec could be 2/2 encephalitis , concussion? Ativan given, Ativan PRN if needed for seizure CT scan negative for masses\bleed Discussed with ER doing an LP, Hold on seizure meds for now Seizure precautions Neurology eval Fever Spiked up to 103 in ED possibly 2/2 Viral infx, Encephalitis, groing cellulitis Not septic , normal LA Blood cultures pending ID evaluation Started on Vancomycin for possible inguinal cellulitis\folliculitis Acyclovir started after discussing with Neurology Skin rash Along L2 dermatome on left side possible Zooster rash; on Acyclovir Prednisone PO Gabapentin for pain Acute kidney injury Cr of 1.5 from baseline of 1 CT negative for any obstruction IVF follow BMP Scalp hematoma 2/2 fall clean and covered, monitor DVT PPx SCDs until we clear up on LP decision The patient will need at least 2 overnight hospital stay given work up for fever, seizure pending specialist opinion and clinical improvement. Quality Stroke Does the patient have a stroke diagnosis?: No VTE Prior VTE?: No VTE Risk Level:: Medical - moderate - high VTE Device Contraindication: N/A - Device Ordered VTE Drug Contraindication: Treatment Not Indicated
[2023-07-14] MEDS: Acetaminophen 325 MG TABLET 975 MG PO (16:41)
[2023-07-14] MEDS: predniSONE 20 MG TABLET 40 MG PO (16:41)
[2023-07-14 16:49] LABS: C Reactive Protein 0.43 mg/dL (< or = 0.50)
[2023-07-14 16:56] LABS: Appearance Urine Clear; Color Urine Yellow; Glucose Urine UA Negative (Negative); Leukocyte Esterase Urine Negative (Negative); Nitrite Urine Negative (Negative); PH 5.5 (5.0-9.0); Specific Gravity - Urine >= 1.030 (1.005-1.025); Urine Blood Negative (Negative); Urine Ketones Trace mg/dL (Negative); Urine Protein Negative (Neg-Trace)
--- NOTE | 2023-07-14 17:14 | PHA.MEDREC ---
Pharmacy Consult ? Medication Reconciliation Pharmacy has completed the medication reconciliation. No reported meds outside rescue inhaler.
[2023-07-14 17:21] LABS: Creatinine Urine 99.27 mg/dL
[2023-07-14 17:24] LABS: Erythrocyte Sedimentation Rate 16 MM/HR (0-15)
--- NOTE | 2023-07-14 17:27 | PC.NURSE ---
sig other Kalin can be reached at [phone]
[2023-07-14 17:36] LABS: COVID-19 Test Negative (Negative); IDNOW Serial# 6674DD1D
[2023-07-14] MEDS: 0.9 % Sodium Chloride 1,000 ML 100 ML IVCONT (17:37)
[2023-07-14 17:40] LABS: IDNOW Serial# 9DB6401D; Influenza A Negative (Negative); Influenza B2 Negative (Negative); Lactic Acid 1.2 mmol/L (0.5-2.0)
[2023-07-14 17:51] LABS: Troponin-I High Sensitivity 24.5 ng/L (<3.5-35.0)
--- NOTE | 2023-07-14 18:08 | PC.NURSE ---
Alert and oriented, reports feeling better. temp still elevated provider aware
[2023-07-14] MEDS: Acetaminophen 325 MG TABLET 650 MG PO (18:30)
--- NOTE | 2023-07-14 18:33 | PC.NURSE ---
cold compress applied as tolerated to patients arms and legs
[2023-07-14 20:01] LABS: Appearance CSF CLEAR; CSF Tube # 4; Color CSF COLORLESS
[2023-07-14] MEDS: Lidocaine HCl 1 % MPF 5 ML VIAL INFILTRATI (20:21)
[2023-07-14 20:30] LABS: CSF Appearance Clear, Colorless
[2023-07-14 20:31] LABS: CSF Tube # 2
[2023-07-14 20:32] LABS: Red Blood Cell CSF 4 MM*3
[2023-07-14 20:35] LABS: Glucose CSF 41 mg/dL; Total Protein CSF 92.4 mg/dL (15-45)
[2023-07-14 20:48] LABS: Neutrophils CSF 21 %
[2023-07-14 20:49] LABS: CSF Monos 36 %; CSF Other Cells % 4 %; Lymphocytes CSF 39 %
[2023-07-14 21:06] LABS: Appearance CSF CLEAR
[2023-07-14 21:07] LABS: CSF Tube # 1; Color CSF COLORLESS; Red Blood Cell CSF 3 MM*3
[2023-07-14] MEDS: Gabapentin 100 MG CAPSULE PO (21:11)
[2023-07-14] MEDS: 0.9 % Sodium Chloride Flush 3 ML SYRINGE IVFLUSH (21:12)
[2023-07-14 21:24] LABS: Cryptococcus neoformans/gattii Not Detected (Not Detect.); Enterovirus Not Detected (Not Detect.); Escherichia coli K1 Not Detected (Not Detect.); Haemophilus influenzae Not Detected (Not Detect.); Herpes simplex virus 1 Not Detected (Not Detect.); Herpes simplex virus 2 Not Detected (Not Detect.); Human herpesvirus 6 Not Detected (Not Detect.); Human parechovirus Not Detected (Not Detect.); Listeria monocytogenes Not Detected (Not Detect.); Neisseria meningitidis Not Detected (Not Detect.); Streptococcus agalactiae Not Detected (Not Detect.); Streptococcus pneumoniae Not Detected (Not Detect.)
[2023-07-14 21:27] LABS: Lymphocytes CSF 48 %; Neutrophils CSF 14 %
[2023-07-14 21:28] LABS: CSF Monos 38 %
[2023-07-14 21:37] LABS: Varicella zoster virus Detected (Not Detect.)
[2023-07-14 21:38] LABS: White Blood Cell CSF 95 MM*3
[2023-07-14 21:38] LABS: White Blood Cell CSF 104 MM*3
[2023-07-15] VITALS: BP 135/83; PULSE 66; RESP 18; TEMP 36.4; O2SAT 95
[2023-07-15 03:29] VITALS: BP 166/93; PULSE 75; RESP 20; TEMP 37.2; O2SAT 96
[2023-07-15] MEDS: Acetaminophen 325 MG TABLET 650 MG PO ×3 (03:57→21:00)
[2023-07-15] MEDS: 0.9 % Sodium Chloride 1,000 ML 100 ML IVCONT ×3 (03:59→21:01)
[2023-07-15 04:45] LABS: HIV AB/AG Nonreactive (Nonreactive); HIV Num 1 0.04 S/CO (0.00-0.99)
[2023-07-15 06:52] LABS: Hematocrit 38.3 % (42.0-52.0); Hemoglobin 13.4 g/dl (14.0-18.0); Mean Corpuscular Hemoglobin 30.5 pg (27.0-33.0); Mean Corpuscular Volume 87.2 fL (80.0-98.0); Mean Platelet Volume 10.2 fL (9.4-12.4); Platelet Count 203 X10*3/uL (160-400); Red Blood Count 4.39 X10*6/uL (4.60-5.80); Red Cell Distribution Width 12.8 % (11.0-16.0); White Blood Count 8.8 X10*3/uL (4.8-10.8)
[2023-07-15 07:09] LABS: Anion Gap 11 (12-20); Blood Urea Nitrogen 15 mg/dL (9-16); Calcium 8.7 mg/dL (8.4-10.2); Carbon Dioxide 23 mmol/L (22-29); Chloride 106 mmol/L (96-108); Creatinine Clr Calc Pharmacy 67.6; Estimated Glomerular Filt Rate 59; Glucose Random 121 mg/dL (60-115); Potassium 3.8 mmol/L (3.3-5.1); Sodium 136 mmol/L (135-145)
[2023-07-15 07:15] VITALS: BP 157/83; PULSE 85; RESP 20; TEMP 37.1; O2SAT 96
[2023-07-15] MEDS: predniSONE 20 MG TABLET 40 MG PO (08:54)
[2023-07-15] MEDS: Gabapentin 100 MG CAPSULE PO ×3 (08:54→20:48)
--- NOTE | 2023-07-15 11:35 | P.PNIM_ITS ---
Subjective Subjective Date of Service: 07/15/23 Interval History: Seen and evaluated this morning Alert and interactive no reported seizure or altered mentation overnight Review of Systems Review of Systems: Yes all other systems are reviewed and are negative Physical Exam 2 Vital Signs: Vital Signs: Last Vital Signs Temp 98.8 F 07/15/23 07:15 Pulse 85 07/15/23 07:15 Resp 20 07/15/23 07:15 BP 157/83 H 07/15/23 07:15 Pulse Ox 96 07/15/23 07:15 O2 Del Method Room Air 07/15/23 07:15 BMI result Body Mass Index 33.1 Const: Other: Constitutional : Awake, interactive, not in distress Neck : Normal inspection, Supple Cardiovascular : RRR, no JVP, no lower extremity edema Respiratory : good bilateral air entry, no crackles, wheezes or rhonchi Gastrointestinal: soft, lax, Normal bowel sounds, Non tender Skin : Warm, Dry, vesicular rash in his back to left side, no drainage. no significant Inguinal rash Neurological : Alert & oriented x3, moving extremities, Objective Data Active Medications Acetaminophen (Acetaminophen 325 Mg Tablet) 650 mg PO Q6H PRN PRN Reason: Pain, Mild (Pain Scale 1-3) Last Admin: 07/15/23 09:11 Dose: 650 mg Documented By: NELSON Albuterol Sulfate (Albuterol Sulfate 90 Mcg 8 Gm Inhaler) 2 puff INHALE QID PRN PRN Reason: wheezing Gabapentin (Gabapentin 100 Mg Capsule) 100 mg PO TID [facility] Last Admin: 07/15/23 08:54 Dose: 100 mg Documented By: NELSON Sodium Chloride (Ns) 1,000 mls @ 100 mls/hr IVCONT .Q10H [facility] Last Admin: 07/15/23 08:56 Dose: Not Given Documented By: NELSON Non-Admin Reason: IV Running Acyclovir Sodium 750 mg/ (Sodium Chloride) 265 mls @ 265 mls/hr IV Q8H [facility] Last Infusion: 07/15/23 06:31 Dose: Infused Documented By: KEKE Lorazepam (Lorazepam 2 Mg/Ml Vial) 2 mg IVPUSH ONCE PRN PRN Reason: Seizures Ondansetron HCl (Ondansetron Hcl 4 Mg/2 Ml Vial) 4 mg IVPUSH Q8H PRN PRN Reason: Nausea and Vomiting Prednisone (Prednisone 20 Mg Tablet) 40 mg PO DAILY [facility] Last Admin: 07/15/23 08:54 Dose: 40 mg Documented By: NELSON Sodium Chloride (0.9 % Sodium Chloride Flush 3 Ml Syringe) 3 ml IVFLUSH QSHIFT [facility] Last Admin: 07/15/23 07:35 Dose: Not Given Documented By: NELSON Non-Admin Reason: See Note Labs 07/15/23 06:34 07/15/23 06:34 Labs: Laboratory Results - last 24 hr 07/14/23 07/14/23 07/14/23 11:44 11:51 16:47 MCV 89.9 MCH 30.0 MCHC 33.4 RDW 13.3 Plt Count 202 MPV 10.2 Immature Gran % (Auto) 0.2 Neut % (Auto) 59.9 Lymph % (Auto) 25.1 Jennings % (Auto) 14.0 H Eos % (Auto) 0.2 Baso % (Auto) 0.6 Lymph # (Auto) 2.1 Jennings # (Auto) 1.2 Eos # (Auto) 0.0 Baso # (Auto) 0.1 Abs Immat Gran (auto) 0.02 Absolute Neuts (auto) 4.9 Absolute Nucleated RBC 0.000 Nucleated RBC % (auto) 0.0 Smear Tech's Comments VERIFIED ESR 16 H PT 13.5 H INR 1.1 Anion Gap 13 Estim Creat Clear Calc 55.6 Estimated GFR 48 POC Glucose 107 Random Glucose 117 H Lactic Acid Calcium 9.2 Total Bilirubin 0.7 Direct Bilirubin 0.2 AST 50 H ALT 21 Alkaline Phosphatase 63 C-Reactive Protein 0.43 Total Protein 7.7 Albumin 4.1 Urine Color Yellow Urine Appearance Clear Urine pH 5.5 Ur Specific Ider >= 1.030 H Urine Protein Negative Urine Glucose (UA) Negative Urine Ketones Trace Urine Blood Negative Urine Nitrite Negative Ur Leukocyte Esterase Negative Ur Random Sodium 108.0 Urine Creatinine 99.27 CSF Tube Number CSF Volume CSF Appearance CSF Color CSF WBC CSF RBC CSF Neutrophils CSF Lymphocytes CSF Monocytes % CSF Other Cells % CSF Appearance (b) CSF Glucose CSF Total Protein CSF C.neoform/gat PCR CSF CMV DNA (PCR) CSF Enterovirus (PCR) CSF E. coli K1 (PCR) CSF H. influenzae (PCR) CSF HSV I (PCR) CSF HSV II (PCR) CSF HHV 6 (PCR) CSF L.monocytogenes PCR CSF N. meningitidis PCR CSF Parechovirus (PCR) CSF S. agalactiae (PCR) CSF S. pneumoniae (PCR) CSF VZV (PCR) COVID-19 ([facility]) COVID-19 Clin Com HIV 1&2 Ab/P24 Ag 4thGn Influenza Type A (ERIC) Influenza Type B (ERIC) Influenza A & B Note 07/14/23 07/14/23 07/14/23 17:12 17:13 19:43 MCV MCH MCHC RDW Plt Count MPV Immature Gran % (Auto) Neut % (Auto) Lymph % (Auto) Jennings % (Auto) Eos % (Auto) Baso % (Auto) Lymph # (Auto) Jennings # (Auto) Eos # (Auto) Baso # (Auto) Abs Immat Gran (auto) Absolute Neuts (auto) Absolute Nucleated RBC Nucleated RBC % (auto) Smear Tech's Comments ESR PT INR Anion Gap Estim Creat Clear Calc Estimated GFR POC Glucose Random Glucose Lactic Acid 1.2 Calcium Total Bilirubin Direct Bilirubin AST ALT Alkaline Phosphatase C-Reactive Protein Total Protein Albumin Urine Color Urine Appearance Urine pH Ur Specific Ider Urine Protein Urine Glucose (UA) Urine Ketones Urine Blood Urine Nitrite Ur Leukocyte Esterase Ur Random Sodium Urine Creatinine CSF Tube Number Cancelled CSF Volume CSF Appearance CSF Color CSF WBC CSF RBC CSF Neutrophils CSF Lymphocytes CSF Monocytes % CSF Other Cells % CSF Appearance (b) CSF Glucose CSF Total Protein CSF C.neoform/gat PCR CSF CMV DNA (PCR) CSF Enterovirus (PCR) CSF E. coli K1 (PCR) CSF H. influenzae (PCR) CSF HSV I (PCR) CSF HSV II (PCR) CSF HHV 6 (PCR) CSF L.monocytogenes PCR CSF N. meningitidis PCR CSF Parechovirus (PCR) CSF S. agalactiae (PCR) CSF S. pneumoniae (PCR) CSF VZV (PCR) COVID-19 ([facility]) Negative COVID-19 Clin Com See Note HIV 1&2 Ab/P24 Ag 4thGn Nonreactive Influenza Type A (ERIC) Negative Influenza Type B (ERIC) Negative Influenza A & B Note See Note 07/14/23 07/14/23 07/14/23 19:43 19:44 19:45 MCV MCH MCHC RDW Plt Count MPV Immature Gran % (Auto) Neut % (Auto) Lymph % (Auto) Jennings % (Auto) Eos % (Auto) Baso % (Auto) Lymph # (Auto) Jennings # (Auto) Eos # (Auto) Baso # (Auto) Abs Immat Gran (auto) Absolute Neuts (auto) Absolute Nucleated RBC Nucleated RBC % (auto) Smear Tech's Comments ESR PT INR Anion Gap Estim Creat Clear Calc Estimated GFR POC Glucose Random Glucose Lactic Acid Calcium Total Bilirubin Direct Bilirubin AST ALT Alkaline Phosphatase C-Reactive Protein Total Protein Albumin Urine Color Urine Appearance Urine pH Ur Specific Ider Urine Protein Urine Glucose (UA) Urine Ketones Urine Blood Urine Nitrite Ur Leukocyte Esterase Ur Random Sodium Urine Creatinine CSF Tube Number 1 4 CSF Volume 1.0 CSF Appearance CLEAR CSF Color COLORLESS CSF WBC 95 H* CSF RBC 3 CSF Neutrophils 14 CSF Lymphocytes 48 CSF Monocytes % 38 CSF Other Cells % CSF Appearance (b) Cancelled CSF Glucose CSF Total Protein Cancelled CSF C.neoform/gat PCR Not Detected CSF CMV DNA (PCR) Not Detected CSF Enterovirus (PCR) Not Detected CSF E. coli K1 (PCR) Not Detected CSF H. influenzae (PCR) Not Detected CSF HSV I (PCR) Not Detected CSF HSV II (PCR) Not Detected CSF HHV 6 (PCR) Not Detected CSF L.monocytogenes PCR Not Detected CSF N. meningitidis PCR Not Detected CSF Parechovirus (PCR) Not Detected CSF S. agalactiae (PCR) Not Detected CSF S. pneumoniae (PCR) Not Detected CSF VZV (PCR) Detected A* COVID-19 ([facility]) COVID-19 Clin Com HIV 1&2 Ab/P24 Ag 4thGn Influenza Type A (ERIC) Influenza Type B (ERIC) Influenza A & B Note 07/14/23 07/15/23 19:45 06:34 MCV 87.2 MCH 30.5 MCHC 35.0 RDW 12.8 Plt Count 203 MPV 10.2 Immature Gran % (Auto) Neut % (Auto) Lymph % (Auto) Jennings % (Auto) Eos % (Auto) Baso % (Auto) Lymph # (Auto) Jennings # (Auto) Eos # (Auto) Baso # (Auto) Abs Immat Gran (auto) Absolute Neuts (auto) Absolute Nucleated RBC 0.000 Nucleated RBC % (auto) 0.0 Smear Tech's Comments ESR PT INR Anion Gap 11 L Estim Creat Clear Calc 67.6 Estimated GFR 59 POC Glucose Random Glucose 121 H Lactic Acid Calcium 8.7 Total Bilirubin Direct Bilirubin AST ALT Alkaline Phosphatase C-Reactive Protein Total Protein Albumin Urine Color Urine Appearance Urine pH Ur Specific Ider Urine Protein Urine Glucose (UA) Urine Ketones Urine Blood Urine Nitrite Ur Leukocyte Esterase Ur Random Sodium Urine Creatinine CSF Tube Number 2 CSF Volume 1.0 CSF Appearance CLEAR CSF Color COLORLESS CSF WBC 104 H* CSF RBC 4 CSF Neutrophils 21 CSF Lymphocytes 39 CSF Monocytes % 36 CSF Other Cells % 4 CSF Appearance (b) Clear, Colorless CSF Glucose 41 CSF Total Protein 92.4 H CSF C.neoform/gat PCR CSF CMV DNA (PCR) CSF Enterovirus (PCR) CSF E. coli K1 (PCR) CSF H. influenzae (PCR) CSF HSV I (PCR) CSF HSV II (PCR) CSF HHV 6 (PCR) CSF L.monocytogenes PCR CSF N. meningitidis PCR CSF Parechovirus (PCR) CSF S. agalactiae (PCR) CSF S. pneumoniae (PCR) CSF VZV (PCR) COVID-19 ([facility]) COVID-19 Clin Com HIV 1&2 Ab/P24 Ag 4thGn Influenza Type A (ERIC) Influenza Type B (ERIC) Influenza A & B Note Microbiology Microbiology Results: Microbiology 07/14/23 16:47 Gram Stain - Final Abdomen - Abdominal Routine Culture - Preliminary Culture in progress. 07/14/23 19:43 Gram Stain - Final Cerebrospinal Fluid CSF Examination - Final Fluid Description - Final Assessment and Plan (1) Fever: Status: Acute (2) Herpes zoster encephalitis: Status: Acute (3) ARCELIA (acute kidney injury): Status: Acute (4) Seizure: Status: Acute (5) Syncope: Status: Acute Plan A 58 years old male with no PMH who presents to the hospital for evaluation of back painful rash. Fell and had seizure activity in ED. 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 Encphalitis panel positive for VZ Acyclovir started after discussing with Neurology Hold on seizure meds for now Seizure precautions Neurology eval Fever Spiked up to 103 in ED possibly 2/2 Viral Encephalitis, groin cellulitis Not septic , normal LA Blood cultures pending ID evaluation on Vancomycin for possible inguinal cellulitis\folliculitis Skin rash Along L2 dermatome on left side 2/2 Zooster rash; on Acyclovir Prednisone PO Gabapentin for pain Acute kidney injury Improving, Cr 1.2 IVF follow BMP Scalp hematoma 2/2 fall clean and covered, monitor DVT PPx SCDs until we clear up on LP decision The patient will need overnight hospital stay given work up for fever, seizure pending specialist opinion and clinical improvement. Quality Stroke Does the patient have a stroke diagnosis?: No VTE Prior VTE?: No VTE Risk Level:: Medical - moderate - high VTE Device Contraindication: N/A - Device Ordered VTE Drug Contraindication: Treatment Not Indicated
[2023-07-15 11:40] VITALS: BP 161/92; PULSE 79; RESP 20; TEMP 36.3; O2SAT 95
--- NOTE | 2023-07-15 12:37 | MHC.CM.PN ---
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 He does not use home health services or med equipment. HCP form given, added to chart. Pt girlfriend can transport him home upon DC. CM will follow and assist with DC planning.
--- NOTE | 2023-07-15 13:07 | PM.NEUROCN ---
History of Present Illness Data of Consult Service Date: 07/15/23 Primary Care Provider: Unknown Physician HPI Reason for consult: Encephalitis 58 years old man who apparently had no significant past medical history came to hospital few days ago with left-sided abdominal area pain. No obvious pathology was noted and it was considered that maybe this was a renal problem. He was discharged with pain medicine. He came back to hospital with same pain when he also developed a vesicular rash. With diagnosis of shingles, he was given prescription for valacyclovir. While he was living hospital, in emergency room he fell down and had a generalized tonic clonic type of convulsion. He was brought back to hospital. He was also noted to have fever. With this information it he suffered from viral encephalitis and I instructed to start acyclovir. Lumbar puncture was recommended which he had. Now he was feeling better, but was complaining of headache. He denied any significant headache in the past. Review of Systems Review of Systems: Recent physical a rash with pain PMFSH Past Medical History Medical History (Updated 07/15/23 @ 11:43 by Blaine Donnelly MD) No pertinent past medical history Social History Social History Household Members: Children Housing: House Do you presently have visiting nurse or other home services: No Alcohol intake: current Alcohol intake frequency: holidays/special occasions only Patient Tobacco Use Status: Never used Tobacco Smoked in Last 30 Days: No Use of substances other than those prescribed or required for medical reasons: Yes Substance Use Type: Marijuana Substance Use Frequency: Daily Currently Displaying Signs/Symptoms of Drug Intoxication Withdrawal: No Any prior treatment program specific to substance use: No Have you been hit, kicked, punched, or otherwise hurt by someone within the past year? If so, by whom?: No Do you feel safe in your current relationship?: No Current Relationship Is there a partner from a previous relationship who is making you feel unsafe now?: No Are you made to feel afraid or neglected: No Advance Directives: No Advance Directives Information Provided: No Do you have thoughts of harming others: None Do you have a plan to hurt others: No Plan Recently lost weight without trying: No Nutrition Risks: No Nutritional Risk Poor oral hygiene: No service: No Meds Allergies Allergy/AdvReac Type Severity Reaction Status Date / Time No Known Allergies Allergy Verified 07/14/23 11:01 Active Medications: Current Medications Acetaminophen (Acetaminophen 325 Mg Tablet) 650 mg PO Q6H PRN PRN Reason: Pain, Mild (Pain Scale 1-3) Last Admin: 07/15/23 09:11 Dose: 650 mg Albuterol Sulfate (Albuterol Sulfate 90 Mcg 8 Gm Inhaler) 2 puff INHALE QID PRN PRN Reason: wheezing Gabapentin (Gabapentin 100 Mg Capsule) 100 mg PO TID [facility] Last Admin: 07/15/23 08:54 Dose: 100 mg Sodium Chloride (Ns) 1,000 mls @ 100 mls/hr IVCONT .Q10H [facility] Last Admin: 07/15/23 08:56 Dose: Not Given Acyclovir Sodium 750 mg/ (Sodium Chloride) 265 mls @ 265 mls/hr IV Q8H [facility] Last Admin: 07/15/23 11:42 Dose: 265 mls/hr Lorazepam (Lorazepam 2 Mg/Ml Vial) 2 mg IVPUSH ONCE PRN PRN Reason: Seizures Ondansetron HCl (Ondansetron Hcl 4 Mg/2 Ml Vial) 4 mg IVPUSH Q8H PRN PRN Reason: Nausea and Vomiting Prednisone (Prednisone 20 Mg Tablet) 40 mg PO DAILY [facility] Last Admin: 07/15/23 08:54 Dose: 40 mg Sodium Chloride (0.9 % Sodium Chloride Flush 3 Ml Syringe) 3 ml IVFLUSH QSHIFT [facility] Last Admin: 07/15/23 07:35 Dose: Not Given Home Medications Medication Instructions Recorded Confirmed Last Taken Type albuterol sulfate 90 mcg/actuation 2 puff inhalation QID PRN wheezing 07/14/23 07/14/23 Unknown History aerosol inhaler Physical Exam Vital Signs: Vital Signs: Last Vital Signs Temp 97.4 F 07/15/23 11:40 Pulse 79 07/15/23 11:40 Resp 20 07/15/23 11:40 BP 161/92 H 07/15/23 11:40 Pulse Ox 95 07/15/23 11:40 O2 Del Method Room Air 07/15/23 11:40 BMI result Body Mass Index 33.1 Neuro: Other: He was alert and awake with normal spontaneity of speech fluency comprehension and affect. Face was symmetrical. Visual limon are full. Moving neck side to side and up and down worsened neck and head pain and he was unable to touch his chin to his chest. Deep tendon reflexes were 2+ with flexor plantars. There was no obvious focal weakness. Speech was normal. Results Labs 07/15/23 06:34 07/15/23 06:34 Labs: Short CBC 07/15/23 Range/Units 06:34 WBC 8.8 (4.8-10.8) X10*3/uL Hgb 13.4 L (14.0-18.0) g/dl Hct 38.3 L (42.0-52.0) % Plt Count 203 (160-400) X10*3/uL BMP 07/15/23 06:34 Sodium 136 Potassium 3.8 Chloride 106 Carbon Dioxide 23 BUN 15 Creatinine 1.24 Calcium 8.7 Urine 07/14/23 Range/Units 16:47 Urine Color Yellow Urine Appearance Clear Urine pH 5.5 (5.0-9.0) Ur Specific [place] >= 1.030 H (1.005-1.025) Urine Protein Negative (Neg-Trace) mg/dL Urine Glucose (UA) Negative (Negative) mg/dL Head CT without contrast did not reveal any significant abnormality. Lumbar puncture results were reviewed. Microbiology Microbiology Results: Microbiology 07/14/23 19:43 Cerebrospinal Fluid Gram Stain - Final 07/14/23 19:43 Cerebrospinal Fluid CSF Examination - Final 07/14/23 19:43 Cerebrospinal Fluid Fluid Description - Final 07/14/23 19:43 Cerebrospinal Fluid CSF Culture - Preliminary No growth to date. 07/14/23 16:47 Abdomen - Abdominal Gram Stain - Final 07/14/23 16:47 Abdomen - Abdominal Routine Culture - Preliminary Culture in progress. 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 Mainstay of management is acyclovir 10 mg/kg intravenous does for 7-10 days. I would suggest for 10 days. There is no particular need for and antiepileptic on less a seizure what happened again. In that case, I recommend loading him with levetiracetam. Procedures Date of Service Date of Service: 07/15/23
[2023-07-15 14:59] VITALS: BP 166/97; PULSE 75; RESP 20; TEMP 36.4; O2SAT 95
[2023-07-15] MEDS: Morphine Sulfate 2 MG/ML CARTRIDGE IVPUSH ×2 (15:05→22:28)
[2023-07-15 20:00] VITALS: BP 135/84; PULSE 75; RESP 18; TEMP 36.5; O2SAT 96
[2023-07-15] MEDS: 0.9 % Sodium Chloride Flush 3 ML SYRINGE IVFLUSH (20:49)
[2023-07-16] VITALS (11 sets, daily range): BP systolic 158–180; BP diastolic 80–100; PULSE 69–90; RESP 18–20; TEMP 36.1–37.1; O2SAT 95–98
[2023-07-16] MEDS: Morphine Sulfate 2 MG/ML CARTRIDGE IVPUSH ×2 (04:16→15:53)
[2023-07-16 06:50] LABS: Hematocrit 37.4 % (42.0-52.0); Hemoglobin 12.7 g/dl (14.0-18.0); Mean Corpuscular Hemoglobin 30.2 pg (27.0-33.0); Mean Corpuscular Volume 88.8 fL (80.0-98.0); Mean Platelet Volume 10.7 fL (9.4-12.4); Platelet Count 212 X10*3/uL (160-400); Red Blood Count 4.21 X10*6/uL (4.60-5.80); Red Cell Distribution Width 12.9 % (11.0-16.0); White Blood Count 14.2 X10*3/uL (4.8-10.8)
[2023-07-16 07:06] LABS: Anion Gap 11 (12-20); Blood Urea Nitrogen 13 mg/dL (9-16); Calcium 8.5 mg/dL (8.4-10.2); Carbon Dioxide 23 mmol/L (22-29); Chloride 109 mmol/L (96-108); Creatinine Clr Calc Pharmacy 84.7; Estimated Glomerular Filt Rate > 60; Glucose Random 107 mg/dL (60-115); Potassium 3.8 mmol/L (3.3-5.1); Sodium 139 mmol/L (135-145)
[2023-07-16] MEDS: Gabapentin 100 MG CAPSULE PO ×3 (09:36→19:36)
[2023-07-16] MEDS: predniSONE 20 MG TABLET 40 MG PO (09:36)
[2023-07-16] MEDS: 0.9 % Sodium Chloride Flush 3 ML SYRINGE IVFLUSH ×2 (09:37→23:46)
[2023-07-16] MEDS: 0.9 % Sodium Chloride 1,000 ML 100 ML IVCONT (09:37)
--- NOTE | 2023-07-16 10:26 | PC.NURSE ---
RN to RN report given to Reginald Betts RN assuming care of patient at this time.
--- NOTE | 2023-07-16 12:24 | P.PNIM_ITS ---
Subjective Subjective Date of Service: 07/16/23 Interval History: Seen and evaluated this morning Alert and interactive no reported seizure or altered mentation overnight Review of Systems Review of Systems: Yes all other systems are reviewed and are negative Physical Exam 2 Vital Signs: Vital Signs: Last Vital Signs Temp 97.8 F 07/16/23 11:32 Pulse 77 07/16/23 11:32 Resp 20 07/16/23 11:32 BP 158/85 H 07/16/23 11:32 Pulse Ox 98 07/16/23 11:32 O2 Del Method Room Air 07/16/23 11:32 BMI result Body Mass Index 33.1 Const: Other: Constitutional : Awake, interactive, not in distress Neck : Normal inspection, Supple Cardiovascular : RRR, no JVP, no lower extremity edema Respiratory : good bilateral air entry, no crackles, wheezes or rhonchi Gastrointestinal: soft, lax, Normal bowel sounds, Non tender Skin : Warm, Dry, vesicular rash in his back to left side, no drainage. no significant Inguinal rash Neurological : Alert & oriented x3, moving extremities, Objective Data Active Medications Acetaminophen (Acetaminophen 325 Mg Tablet) 650 mg PO Q6H PRN PRN Reason: Pain, Mild (Pain Scale 1-3) Last Admin: 07/15/23 21:00 Dose: 650 mg Documented By: GUZMAN Albuterol Sulfate (Albuterol Sulfate 90 Mcg 8 Gm Inhaler) 2 puff INHALE QID PRN PRN Reason: wheezing Gabapentin (Gabapentin 100 Mg Capsule) 100 mg PO TID [facility] Last Admin: 07/16/23 09:36 Dose: 100 mg Documented By: PRACHI Sodium Chloride (Ns) 1,000 mls @ 100 mls/hr IVCONT .Q10H [facility] Last Admin: 07/16/23 09:37 Dose: 100 mls/hr Documented By: PRACHI Acyclovir Sodium 750 mg/ (Sodium Chloride) 265 mls @ 265 mls/hr IV Q8H [facility] Last Admin: 07/16/23 11:51 Dose: 265 mls/hr Documented By: LAILA Lorazepam (Lorazepam 2 Mg/Ml Vial) 2 mg IVPUSH ONCE PRN PRN Reason: Seizures Morphine Sulfate (Morphine Sulfate 2 Mg/Ml Cartridge) 2 mg IVPUSH Q4H PRN; Protocol PRN Reason: Pain, Severe (Pain Scale 7-10) Last Admin: 07/16/23 04:16 Dose: 2 mg Documented By: GUZMAN Ondansetron HCl (Ondansetron Hcl 4 Mg/2 Ml Vial) 4 mg IVPUSH Q8H PRN PRN Reason: Nausea and Vomiting Prednisone (Prednisone 20 Mg Tablet) 40 mg PO DAILY [facility] Last Admin: 07/16/23 09:36 Dose: 40 mg Documented By: PRACHI Sodium Chloride (0.9 % Sodium Chloride Flush 3 Ml Syringe) 3 ml IVFLUSH QSHIFT [facility] Last Admin: 07/16/23 11:54 Dose: Not Given Documented By: LAILA Non-Admin Reason: IV Running Labs 07/16/23 05:53 07/16/23 05:53 Labs: Laboratory Results - last 24 hr 07/16/23 05:53 MCV 88.8 MCH 30.2 MCHC 34.0 RDW 12.9 Plt Count 212 MPV 10.7 Absolute Nucleated RBC 0.000 Nucleated RBC % (auto) 0.0 Anion Gap 11 L Estim Creat Clear Calc 84.7 Estimated GFR > 60 Random Glucose 107 Calcium 8.5 Microbiology Microbiology Results: Microbiology 07/14/23 19:43 Gram Stain - Final Cerebrospinal Fluid CSF Examination - Final Fluid Description - Final CSF Culture - Preliminary No growth after 1 day 07/14/23 16:47 Gram Stain - Final Abdomen - Abdominal Routine Culture - Preliminary 07/14/23 17:13 Blood Culture - Preliminary Blood - Venous No growth after 24 hours. 07/14/23 16:39 Blood Culture - Preliminary Blood - Venous No growth after 24 hours. Assessment and Plan (1) Herpes zoster encephalitis: Status: Acute (2) ARCELIA (acute kidney injury): Status: Acute (3) Seizure: Status: Acute Plan A 58 years old male with no PMH who presents to the hospital for evaluation of back painful rash. Fell and had seizure activity in ED. 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 Encphalitis panel positive for VZ Acyclovir 750mg Q8 (started 07/14) Hold on seizure meds for now Seizure precautions Neurology input appreciated, 7 to 10 days of IV Acyclovir Fever No fever since the Likely 2/2 Viral Encephalitis Not septic , normal LA Blood cultures pending ID evaluation Skin rash Along L2 dermatome on left side 2/2 Zooster rash; on Acyclovir Prednisone PO Gabapentin for pain Acute kidney injury Improving, Cr 1 IVF follow BMP Scalp hematoma 2/2 fall clean and covered, monitor DVT PPx SCDs until we clear up on LP decision The patient will need overnight hospital stay given work up for fever, seizure pending finishing course of IV Acyclovir and ID evaluation. Quality Stroke Does the patient have a stroke diagnosis?: No VTE Prior VTE?: No VTE Risk Level:: Medical - moderate - high VTE Device Contraindication: N/A - Device Ordered VTE Drug Contraindication: Treatment Not Indicated
--- NOTE | 2023-07-16 17:26 | PC.NURSE ---
BP still High, MD notified, will order new meds.
[2023-07-16] MEDS: amLODIPine Besylate 5 MG TABLET PO (17:36)
--- NOTE | 2023-07-16 18:36 | PC.NURSE ---
IVF stopped, One dose of Amlodipine given PO for high BP.
--- NOTE | 2023-07-17 00:52 | W.PM.IDCN ---
History of Present Illness Data of Consult Service Date: 07/16/23 Requesting physician: Blaine Donnelly Primary Care Provider: Landon Gayle MD HPI Reason for consult: VZV encephalitis He presents with occipital headache 10/10 for couple days and has temperature 102.7. He had seizure. He had CSF with polys and VZV He had T10 shingles last week. Review of Systems Review of Systems: Yes all other systems are reviewed and are negative PMFSH Past Medical History Medical History No pertinent past medical history Social History Social History Household Members: Children Housing: House Do you presently have visiting nurse or other home services: No Alcohol intake: current Alcohol intake frequency: holidays/special occasions only Patient Tobacco Use Status: Never used Tobacco Smoked in Last 30 Days: No Use of substances other than those prescribed or required for medical reasons: Yes Substance Use Type: Marijuana Substance Use Frequency: Daily Currently Displaying Signs/Symptoms of Drug Intoxication Withdrawal: No Any prior treatment program specific to substance use: No Have you been hit, kicked, punched, or otherwise hurt by someone within the past year? If so, by whom?: No Do you feel safe in your current relationship?: No Current Relationship Is there a partner from a previous relationship who is making you feel unsafe now?: No Are you made to feel afraid or neglected: No Advance Directives: No Advance Directives Information Provided: No Do you have thoughts of harming others: None Do you have a plan to hurt others: No Plan Recently lost weight without trying: No Nutrition Risks: No Nutritional Risk Poor oral hygiene: No service: No Meds Allergies Allergy/AdvReac Type Severity Reaction Status Date / Time No Known Allergies Allergy Verified 07/14/23 11:01 Active Medications: Current Medications Acetaminophen (Acetaminophen 325 Mg Tablet) 650 mg PO Q6H PRN PRN Reason: Pain, Mild (Pain Scale 1-3) Last Admin: 07/15/23 21:00 Dose: 650 mg Albuterol Sulfate (Albuterol Sulfate 90 Mcg 8 Gm Inhaler) 2 puff INHALE QID PRN PRN Reason: wheezing Gabapentin (Gabapentin 100 Mg Capsule) 100 mg PO TID TYRONE Last Admin: 07/16/23 19:36 Dose: 100 mg Acyclovir Sodium 750 mg/ (Sodium Chloride) 265 mls @ 265 mls/hr IV Q8H [facility] Last Infusion: 07/16/23 20:59 Dose: Infused Lorazepam (Lorazepam 2 Mg/Ml Vial) 2 mg IVPUSH ONCE PRN PRN Reason: Seizures Morphine Sulfate (Morphine Sulfate 2 Mg/Ml Cartridge) 2 mg IVPUSH Q4H PRN; Protocol PRN Reason: Pain, Severe (Pain Scale 7-10) Last Admin: 07/16/23 15:53 Dose: 2 mg Ondansetron HCl (Ondansetron Hcl 4 Mg/2 Ml Vial) 4 mg IVPUSH Q8H PRN PRN Reason: Nausea and Vomiting Prednisone (Prednisone 20 Mg Tablet) 40 mg PO DAILY [facility] Last Admin: 07/16/23 09:36 Dose: 40 mg Sodium Chloride (0.9 % Sodium Chloride Flush 3 Ml Syringe) 3 ml IVFLUSH QSHIFT [facility] Last Admin: 07/16/23 23:46 Dose: 3 ml Home Medications Medication Instructions Recorded Confirmed Last Taken Type albuterol sulfate 90 mcg/actuation 2 puff inhalation QID PRN wheezing 07/14/23 07/14/23 Unknown History aerosol inhaler Physical Exam Vital Signs: Vital Signs: Last Vital Signs Temp 97.8 F 07/16/23 23:30 Pulse 73 07/16/23 23:30 Resp 18 07/16/23 23:30 BP 179/97 H 07/16/23 23:30 Pulse Ox 97 07/16/23 23:30 O2 Del Method Room Air 07/16/23 23:30 BMI result Body Mass Index 33.1 Const: General: cooperative HEENT: Head: Yes normal to inspection Face and sinus: Yes normal facial exam Mouth: Normal oral and palatal mucosa present Teeth and gingiva: dentition normal Eyes: General: appearance normal, both eyes and all related structures Pupils: Equal, round and reactive pupils present Resp: Effort & Inspection: normal respiratory effort Cardio: Rate: regular rate Rhythm: regular rhythm GI: Palpation (GI): Soft to palpation and nontender : General: Yes no CVA tenderness Back/Spine/Pelvis: Back: no CVA tenderness Skin: General skin exam: no rashes or lesions noted Neuro: General: moves all extremities Cranial nerves: Yes Equal, round and reactive pupils present Extrem: General: Yes normal to inspection Psych: Appearance: grossly normal Results Labs 07/16/23 05:53 07/16/23 05:53 Labs: Short CBC 07/16/23 Range/Units 05:53 WBC 14.2 H (4.8-10.8) X10*3/uL Hgb 12.7 L (14.0-18.0) g/dl Hct 37.4 L (42.0-52.0) % Plt Count 212 (160-400) X10*3/uL BMP 07/16/23 05:53 Sodium 139 Potassium 3.8 Chloride 109 H Carbon Dioxide 23 BUN 13 Creatinine 0.99 Calcium 8.5 Microbiology Microbiology Results: Microbiology 07/14/23 17:13 Blood - Venous Blood Culture - Preliminary No growth after 48 hours. 07/14/23 16:39 Blood - Venous Blood Culture - Preliminary No growth after 48 hours. 07/14/23 19:43 Cerebrospinal Fluid Gram Stain - Final 07/14/23 19:43 Cerebrospinal Fluid CSF Examination - Final 07/14/23 19:43 Cerebrospinal Fluid Fluid Description - Final 07/14/23 19:43 Cerebrospinal Fluid CSF Culture - Preliminary No growth after 1 day 07/14/23 16:47 Abdomen - Abdominal Gram Stain - Final 07/14/23 16:47 Abdomen - Abdominal Routine Culture - Preliminary Assessment and Plan (1) Herpes zoster encephalitis: Status: Acute IV Acyclovir 10-15 mg/kg every 8 hours for 14 days.
[2023-07-17] MEDS: Morphine Sulfate 2 MG/ML CARTRIDGE IVPUSH ×3 (01:47→20:15)
[2023-07-17 04:00] VITALS: PULSE 70; RESP 18; TEMP 36.2; O2SAT 97
--- NOTE | 2023-07-17 05:14 | PC.NURSE ---
elevated bps tonight asymptomatic md aware. pt started on new bp med norvasc yesteday. will monitor
[2023-07-17 05:58] LABS: Anion Gap 11 (12-20); Blood Urea Nitrogen 14 mg/dL (9-16); Calcium 8.9 mg/dL (8.4-10.2); Carbon Dioxide 25 mmol/L (22-29); Chloride 107 mmol/L (96-108); Creatinine Clr Calc Pharmacy 98.6; Estimated Glomerular Filt Rate > 60; Glucose Random 126 mg/dL (60-115); Potassium 3.6 mmol/L (3.3-5.1); Sodium 139 mmol/L (135-145)
[2023-07-17 07:53] VITALS: BP 145/80; PULSE 68; RESP 18; TEMP 36.8; O2SAT 96
[2023-07-17] MEDS: predniSONE 20 MG TABLET 40 MG PO (08:46)
[2023-07-17] MEDS: Gabapentin 100 MG CAPSULE PO ×3 (08:47→20:15)
[2023-07-17] MEDS: 0.9 % Sodium Chloride Flush 3 ML SYRINGE IVFLUSH ×3 (08:47→21:23)
--- NOTE | 2023-07-17 09:05 | PM.EVENT ---
Event Note Date of Service: 07/17/23 Event Note: stop airborne precautions Time Spent With Patient Time: Total time managing care of this patient today ____ minutes.
--- NOTE | 2023-07-17 09:44 | P.PNIM_ITS ---
Subjective Subjective Date of Service: 07/17/23 Interval History: Seen and evaluated this morning Alert and interactive Still reporting headache no reported seizure or altered mentation overnight Review of Systems Review of Systems: Yes all other systems are reviewed and are negative Physical Exam 2 Vital Signs: Vital Signs: Last Vital Signs Temp 98.3 F 07/17/23 07:53 Pulse 68 07/17/23 07:53 Resp 18 07/17/23 07:53 BP 145/80 H 07/17/23 07:53 Pulse Ox 96 07/17/23 07:53 O2 Del Method Room Air 07/17/23 07:53 BMI result Body Mass Index 33.1 Const: Other: Constitutional : Awake, interactive, not in distress Neck : Normal inspection, Supple Cardiovascular : RRR, no JVP, no lower extremity edema Respiratory : good bilateral air entry, no crackles, wheezes or rhonchi Gastrointestinal: soft, lax, Normal bowel sounds, Non tender Skin : Warm, Dry, vesicular rash in his back to left side, no drainage. no significant Inguinal rash Neurological : Alert & oriented x3, moving extremities, Objective Data Active Medications Acetaminophen (Acetaminophen 325 Mg Tablet) 650 mg PO Q6H PRN PRN Reason: Pain, Mild (Pain Scale 1-3) Last Admin: 07/15/23 21:00 Dose: 650 mg Documented By: GUZMAN Albuterol Sulfate (Albuterol Sulfate 90 Mcg 8 Gm Inhaler) 2 puff INHALE QID PRN PRN Reason: wheezing Gabapentin (Gabapentin 100 Mg Capsule) 100 mg PO TID [facility] Last Admin: 07/17/23 08:47 Dose: 100 mg Documented By: LANCE Acyclovir Sodium 750 mg/ (Sodium Chloride) 265 mls @ 265 mls/hr IV Q8H [facility] Last Infusion: 07/17/23 06:34 Dose: Infused Documented By: RA Lorazepam (Lorazepam 2 Mg/Ml Vial) 2 mg IVPUSH ONCE PRN PRN Reason: Seizures Morphine Sulfate (Morphine Sulfate 2 Mg/Ml Cartridge) 2 mg IVPUSH Q4H PRN; Protocol PRN Reason: Pain, Severe (Pain Scale 7-10) Last Admin: 07/17/23 06:31 Dose: 2 mg Documented By: RA Ondansetron HCl (Ondansetron Hcl 4 Mg/2 Ml Vial) 4 mg IVPUSH Q8H PRN PRN Reason: Nausea and Vomiting Prednisone (Prednisone 20 Mg Tablet) 40 mg PO DAILY [facility] Last Admin: 07/17/23 08:46 Dose: 40 mg Documented By: LANCE Sodium Chloride (0.9 % Sodium Chloride Flush 3 Ml Syringe) 3 ml IVFLUSH QSHIFT [facility] Last Admin: 07/17/23 08:47 Dose: 3 ml Documented By: LANCE Labs 07/16/23 05:53 07/17/23 05:32 Labs: Laboratory Results - last 24 hr 07/17/23 05:32 Hold Purple Top SEE NOTE Anion Gap 11 L Estim Creat Clear Calc 98.6 Estimated GFR > 60 Random Glucose 126 H Calcium 8.9 Microbiology Microbiology Results: Microbiology 07/14/23 16:47 Gram Stain - Final Abdomen - Abdominal Routine Culture - Final 07/14/23 19:43 Gram Stain - Final Cerebrospinal Fluid CSF Examination - Final Fluid Description - Final CSF Culture - Preliminary No growth after 2 days 07/14/23 17:13 Blood Culture - Preliminary Blood - Venous No growth after 48 hours. 07/14/23 16:39 Blood Culture - Preliminary Blood - Venous No growth after 48 hours. Assessment and Plan (1) Herpes zoster encephalitis: Status: Acute (2) ARCELIA (acute kidney injury): Status: Acute (3) Seizure: Status: Acute (4) Shingles rash: Status: Acute Plan A 58 years old male with no PMH who presents to the hospital for evaluation of back painful rash. Fell and had seizure activity in ED. 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 Encphalitis panel positive for VZ Acyclovir 750mg Q8 (started 07/14) Hold on seizure meds for now, Seizure precautions Neurology input appreciated, 7 to 10 days of IV Acyclovir Blood cultures pending ID input appreciated, Acyclovir IV for [address] Midline Skin rash Follows L2 dermatome on left side 2/2 Zooster rash; on Acyclovir Prednisone PO Gabapentin for pain Acute kidney injury Improving, Cr 1 IVF follow BMP Scalp hematoma 2/2 fall clean and covered, monitor DVT PPx Lovenox The patient will need overnight hospital stay finishing course of IV Acyclovir pending Midline placement and outpatient planning for IV Acyclovir. Quality Stroke Does the patient have a stroke diagnosis?: No VTE Prior VTE?: No VTE Risk Level:: Medical - moderate - high VTE Device Contraindication: N/A - Device Ordered VTE Drug Contraindication: Treatment Not Indicated
--- NOTE | 2023-07-17 10:14 | MHC.IC ---
Please keep Shingles rash covered.
[2023-07-17] MEDS: Enoxaparin Sodium 40 MG/0.4 ML SYRINGE SUBCUT (10:46)
--- NOTE | 2023-07-17 11:15 | MHC.CM.PN ---
Addendum entered by Melody Nicole 07/17/23 15:21: Spoke with Kaela @ [facility]. She confirmed that she received the message to start insurance authorization today. Addendum entered by Melody Nicole 07/17/23 15:02: [facility] has offered a bed. The patients insurance [employer] [place] requires authorization. T/W requested that [facility] start the authorization process. Anticipate dc to [facility] tomorrow for IV Acyclovir Q8H via Midline. Patient will transport via BLS. Original Note: Per MD rounds patient will receive a MIDline for IV Acyclovir today. He requires 14 days of the infusion. The patient lives in [place]. He does not have a PCP in [facility]. The patient will need to go to a SNF for IV therapy. Clinical information has been sent to local facilities at the patients request. He did not have SNF preferences. DP SNF IV ABX via BLS.
--- NOTE | 2023-07-17 12:35 | HO.MIDLINE_ITS ---
Midline Insertion MIDLINE INSERTION Diagnosis: HZV encephalitis Indication: acyclovir x 14 days Pertinent Labs: Reviewed Technique: Using sterile technique including cap and mask, glove and drape, the right arm was prepped and draped in the usual sterile fashion of full barrier technique with G. Using ultrasound guidance, right basilic vein access was obtained . 20G x 8cm non PASV PowerGlide ST midline catheter was positioned. The procedure was performed in 272. Ultrasound was used to document vein patency and for needle entry. A formal ultrasound picture was recorded. [employer] has released the line for use and it is currently dressed with a StatLock, Tegaderm, and CHG disc. Verification has been performed for blood return and line patency. Arm Circumference: 35.5 cm Equipment: PowerGlide ST midline catheter Catheter Type: 20G x 8CM non PASV catheter Lot #: [id number]
[2023-07-17 15:20] VITALS: BP 178/89; PULSE 71; RESP 18; TEMP 37; O2SAT 96
[2023-07-17] MEDS: 0.9 % Sodium Chloride Flush 10 ML SYRINGE 5 ML IVFLUSH ×2 (15:46→21:23)
[2023-07-17 15:50] VITALS: BP 142/62
[2023-07-17 19:44] VITALS: BP 148/69; PULSE 75; RESP 18; TEMP 36.1; O2SAT 96
[2023-07-18] VITALS: BP 146/80; PULSE 76; RESP 18; TEMP 36; O2SAT 94
[2023-07-18] MEDS: Morphine Sulfate 2 MG/ML CARTRIDGE IVPUSH ×6 (00:19→23:40)
[2023-07-18 04:00] VITALS: BP 154/88; PULSE 64; RESP 16; TEMP 36.1; O2SAT 95
[2023-07-18 06:25] LABS: Anion Gap 9 (12-20); Blood Urea Nitrogen 17 mg/dL (9-16); Calcium 8.6 mg/dL (8.4-10.2); Carbon Dioxide 27 mmol/L (22-29); Chloride 106 mmol/L (96-108); Creatinine Clr Calc Pharmacy 95.3; Estimated Glomerular Filt Rate > 60; Glucose Random 94 mg/dL (60-115); Potassium 3.5 mmol/L (3.3-5.1); Sodium 138 mmol/L (135-145)
[2023-07-18 07:50] VITALS: BP 158/81; PULSE 66; RESP 16; TEMP 36.6; O2SAT 95
[2023-07-18 08:27] LABS: HIV AB/AG Nonreactive (Nonreactive); HIV Num 1 0.05 S/CO (0.00-0.99)
[2023-07-18] MEDS: Gabapentin 100 MG CAPSULE PO ×3 (09:44→19:46)
[2023-07-18] MEDS: predniSONE 20 MG TABLET 40 MG PO (09:44)
[2023-07-18] MEDS: Enoxaparin Sodium 40 MG/0.4 ML SYRINGE SUBCUT (09:45)
[2023-07-18] MEDS: 0.9 % Sodium Chloride Flush 3 ML SYRINGE IVFLUSH (09:45)
[2023-07-18] MEDS: 0.9 % Sodium Chloride Flush 10 ML SYRINGE 5 ML IVFLUSH ×2 (09:45→17:15)
--- NOTE | 2023-07-18 11:14 | PM.DS ---
DS: Providers Provider Date of admission: 07/14/23 16:33 Primary care physician: Landon Gayle MD Consults: 07/14/23 15:53 Consult to Neurology Routine Consulting Provider: [facility] Reason for consultation: New onset seizure 07/14/23 16:26 Consult to Infectious Diseases Routine Consulting Provider: [facility] Infectious Disease Reason for consultation: Fever, seizure, skin infx ? 07/16/23 10:32 Consult to Wound Care Routine Reason for consultation: shingles to left lower back 07/16/23 12:14 Consult to Wound Care Routine Reason for consultation: Shingles DS: Diagnosis Discharge Diagnosis (1) Herpes zoster encephalitis: Status: Acute (2) ARCELIA (acute kidney injury): Status: Resolved (3) Seizure: Status: Resolved (4) Shingles rash: Status: Acute (5) Fever: Status: Resolved (6) Scalp hematoma: Status: Acute DS: Summary Hospital Course Hospital Course: Admission note HPI A 58 years old male with no PMH who presents to the hospital for evaluation of back painful rash. He was evaluated few days ago for loin and back pain as well and investigations showed Kidney cyst but he did not have a rash there. he developed vesicular rash on the left side of his L2 level. The patient was witnessed to have 30 sec seizure while leaving the emergency that looked tonic-clonic. He was walking out when he stopped, fell, hit his head and started the seizure. No loss of bowel or urine control. He was post-ictal after the incident. No chest pain, palpitations, SOB, nausea, vomiting, diarrhea or urinary symptoms. A CT scan was done immedietly not showing any evidence of bleeding. Admitted for further evaluation and treatment. Hospital course the patient was admitted to the hospital for evaluation of # New onset seizure Secondary to Varicella Zoster encephalitis as confirmed by Encephalitis panel. CT scan was negative for masses\bleed. LP showing elevated WBCs and Protein. Encphalitis panel positive for VZ. blood cultures remained negative. HIV negative. The patient general condition improved with No recurrence of seizure as he was treated with Acyclovir 750mg Q8 (started 07/14) as he was evaluated by ID and neurology who recommended 14 days total of IV Acyclovir. Neurology recommended to hold on seizure meds for now. Midline was placed and he will be discharged to SNF to complete his Acyclovir course. # Shingles Follows L2 dermatome on left side secondary to Zooster rash; on Acyclovir. Treated with Prednisone for 10 days and to continue Gabapentin for pain management. # Acute kidney injury -- Resolved with IV fluids. # Scalp hematoma 2/2 fall clean and covered, monitor, resolving #HTN--Blood pressures have been high, on no meds Started on Norvasc and adjusted to 10 mg daily and will need a follow up with a pCP Plan Continue Acyclovir for 5 more day ending 07/27/23 for Herpes Encephalitis Local care for Shingles, Gabapentin for pain management Follow with neurology as outpatient as needed Physical Exam Vital Signs: Vital Signs: Last Vital Signs Temp 97.8 F 07/18/23 07:50 Pulse 66 07/18/23 07:50 Resp 16 07/18/23 07:50 BP 158/81 H 07/18/23 07:50 Pulse Ox 95 07/18/23 07:50 O2 Del Method Room Air 07/18/23 07:50 BMI result Body Mass Index 33.1 Const: Other: Constitutional : Awake, interactive, not in distress Neck : Normal inspection, Supple Cardiovascular : RRR, no JVP, no lower extremity edema Respiratory : good bilateral air entry, no crackles, wheezes or rhonchi Gastrointestinal: soft, lax, Normal bowel sounds, Non tender Skin : Warm, Dry, vesicular rash in his back to left side, no drainage. Neurological : Alert & oriented x3, moving extremities, DS: Data Data Completed and Pending Labs on day of discharge: Laboratory Results - last 24 hr 07/17/23 07/18/23 14:25 05:32 Hold Purple Top SEE NOTE Sodium 138 Potassium 3.5 Chloride 106 Carbon Dioxide 27 Anion Gap 9 L BUN 17 H Creatinine 0.88 Estim Creat Clear Calc 95.3 Estimated GFR > 60 Random Glucose 94 Calcium 8.6 HIV 1&2 Ab/P24 Ag 4thGn Nonreactive Preliminary micro results at discharge 07/14/23 17:13 Blood Culture - Preliminary Blood - Venous No growth after 48 hours. 07/14/23 16:39 Blood Culture - Preliminary Blood - Venous No growth after [address] scan - head: Radiologist's impression: ITS Impressions Cervical Spine CT 07/14/23 12:13 IMPRESSION: 1. No evidence of acute intracranial hemorrhage or edematous territorial infarction. Mild underlying microangiopathy. 2. No evidence of acute fracture or traumatic subluxation of the cervical spine. Moderate to advanced multilevel degenerative spondyloarthropathy of the cervical spine. 3. Moderate right posterior scalp hematoma. No associated osseous abnormalities. Head CT 07/14/23 12:13 IMPRESSION: 1. No evidence of acute intracranial hemorrhage or edematous territorial infarction. Mild underlying microangiopathy. 2. No evidence of acute fracture or traumatic subluxation of the cervical spine. Moderate to advanced multilevel degenerative spondyloarthropathy of the cervical spine. 3. Moderate right posterior scalp hematoma. No associated osseous abnormalities. Chest X-Ray 07/14/23 13:47 IMPRESSION: Elevation of the left hemidiaphragm without significant acute parenchymal disease appreciated. Abdomen/Pelvis CT 07/14/23 14:47 IMPRESSION: 1. No acute abnormalities. 2. Hepatic steatosis. 3. Left renal cyst. 4. Diverticulosis without diverticulitis. 5. Prostatic hypertrophy. Fleischner guidelines were followed. Chest CT 07/14/23 14:47 IMPRESSION: Somewhat limited study due to motion artifact. Elevation of the left hemidiaphragm. No acute fracture or destructive bony lesion identified. No pneumothorax or pleural effusion. According to the UPDATED 2017 Fleischner Society recommendations, the advised follow-up imaging for solid nodules < 6 mm is: LOW RISK PATIENT: No routine follow-up. HIGH RISK PATIENT: Optional CT at 12 months. Fleischner guidelines were followed. Discharge Plan Discharge Anticipated Discharge Date/Time: 07/23/23 09:57 Patient Disposition: [facility] SNF Discharge Diagnosis: Herpes Zoster Encephalitis Referrals: [facility] [Outside] - 1 Week Landon Gayle MD [Primary Care Provider] - 1 Week Discharge Medications: New gabapentin 100 mg Capsule 200 mg PO TID Qty: 180 0RF morphine 15 mg Tablet 15 mg PO Q6H PRN (Reason: Pain, Severe (Pain Scale 7-10)) Qty: 20 0RF Rx Instructions: Partial Fill upon patient request. acyclovir sodium 50 mg/mL Solution 750 mg IV Q8H 5 Days Qty: 225 0RF Rx Instructions: 5 days including today 07/23/23, ending 07/27/23 amlodipine [Norvasc] 10 mg tablet 10 mg PO DAILY Qty: 90 1RF Continued albuterol sulfate 90 mcg/actuation HFA aerosol inhaler 2 puff inhalation QID PRN (Reason: wheezing) Discharge Orders: Discharge Order (Routine); Ordered 07/23/23 Ordered By: Darion Casey Diet: Advance to usual diet Activity on Discharge: As tolerated Stand Alone Forms: Patient Portal Discharge page, Work/School Release Care Plan Goals: Read below Health Concerns: Read below Plan of Treatment: Read below Assessment: You developed seizure in ED. Found to have viral brain infection consistent with herpez encephalitis. You were evaluated by brain images and neurologist and you recommended to be treated with IV Acyclovir for a total of 14 days, started on 07/14/23, ending 07/27/23 Local care for Shingles, Gabapentin for pain management Prednisone for shingles Follow with neurology as outpatient as needed Follow up with your primary care doctor in a week to 2 weeks Patient Instructions: Shingles (ED) Discharge Date/Time: 07/23/23 13:45
--- NOTE | 2023-07-18 13:19 | HO.WOUND ---
Wound Consult: Initial 58yr old? [place] [facility] [place] - See progress notes and H&P for detailed history.? Wound consult placed for shingles rash to back.? Patient agreeable to assessment and photo documentation.? Pts skin assessed - there is a cluster of crusted vesicular lesions classically following the Left L1/L2 Dermatome. The rash appears at the left lumbar back and into the left groin. The lesions are crusted at this time but patient reports significant itching remains. Recommend dry gauze dressing to keep covered at this time. Discussed with direct care nurse and patient educated and aware. Recommendations: 1. Rash site to left lumbar back and left groin - Cleanse with routine cleansing. Cover with dry gauze and tape - change daily after cleansing. Do not use foam dressing as this will keep lesions moist - goal is to keep lesions dry. Encourage patient not to scratch site. Re-consult wound care Nurse for wound deterioration or wound changes.
--- NOTE | 2023-07-18 13:45 | MHC.CM.PN ---
Addendum entered by Melody Nicole 07/18/23 16:10: [facility] reports that [facility] denied the authorization. A Peer to Peer was offered. called for Peer to Peer conference. He left a VM; because there was no answer at the # [facility] provided. Patient notified that a Peer to Peer conference will happen; because the auth was denied. A referral has been sent to [facility]. A request to check patients financial responsibility. CM will follow up am. Original Note: Patient is planned for discharge pending insurance authorization for [facility] to receive IV Acyclovir Q8H. Patient will transport via BLS once authorization has been received.
[2023-07-18 15:23] VITALS: BP 151/62; PULSE 76; RESP 18; TEMP 36.1; O2SAT 97
[2023-07-18 19:29] VITALS: BP 161/71; PULSE 71; RESP 18; TEMP 36.2; O2SAT 96
[2023-07-18 19:33] VITALS: BP 137/72; PULSE 78; RESP 18; TEMP 36; O2SAT 93
[2023-07-19] VITALS (8 sets, daily range): BP systolic 142–190; BP diastolic 75–102; PULSE 64–80; RESP 14–18; TEMP 36.2–36.7; O2SAT 93–97
[2023-07-19] MEDS: Morphine Sulfate 2 MG/ML CARTRIDGE IVPUSH ×5 (04:13→20:50)
[2023-07-19] MEDS: Gabapentin 100 MG CAPSULE PO ×3 (08:18→20:50)
[2023-07-19] MEDS: 0.9 % Sodium Chloride Flush 10 ML SYRINGE 5 ML IVFLUSH ×2 (08:18→16:46)
[2023-07-19] MEDS: Enoxaparin Sodium 40 MG/0.4 ML SYRINGE SUBCUT (08:18)
[2023-07-19] MEDS: predniSONE 20 MG TABLET 40 MG PO (08:18)
[2023-07-19] MEDS: 0.9 % Sodium Chloride Flush 3 ML SYRINGE IVFLUSH ×2 (08:18→16:46)
[2023-07-19] MEDS: amLODIPine Besylate 5 MG TABLET PO (10:19)
--- NOTE | 2023-07-19 12:27 | MHC.CM.PN ---
Peer to Peer is pending. left a VM waiting on return call. This is the 2nd VM left for the Peer to Peer. DB has been notified that [facility] hospitalists are not receiving a return call x2 <24 hours.
--- NOTE | 2023-07-19 15:52 | P.PNIM_ITS ---
Subjective Subjective Date of Service: 07/19/23 Interval History: No seizure, headache is better Review of Systems Review of Systems: Yes all other systems are reviewed and are negative Physical Exam 2 Vital Signs: Vital Signs: Last Vital Signs Temp 98.1 F 07/19/23 07:35 Pulse 80 07/19/23 07:35 Resp 18 07/19/23 07:35 BP 162/88 H 07/19/23 13:48 Pulse Ox 97 07/19/23 04:00 O2 Del Method Room Air 07/19/23 04:00 BMI result Body Mass Index 33.1 Const: Other: Constitutional : Awake, interactive, not in distress Neck : Normal inspection, Supple Cardiovascular : RRR, no JVP, no lower extremity edema Respiratory : good bilateral air entry, no crackles, wheezes or rhonchi Gastrointestinal: soft, lax, Normal bowel sounds, Non tender Skin : Warm, Dry, vesicular rash in his back to left side, no drainage. Neurological : Alert & oriented x3, moving extremities, Objective Data Active Medications Acetaminophen (Acetaminophen 325 Mg Tablet) 650 mg PO Q6H PRN PRN Reason: Pain, Mild (Pain Scale 1-3) Last Admin: 07/15/23 21:00 Dose: 650 mg Documented By: GUZMAN Acetaminophen/Butalbital/Caffeine (Butalb/Acetamin/Caff 50/325/40 Tablet) 1 tab PO Q4H PRN PRN Reason: Headache Albuterol Sulfate (Albuterol Sulfate 90 Mcg 8 Gm Inhaler) 2 puff INHALE QID PRN PRN Reason: wheezing Amlodipine Besylate (Amlodipine Besylate 5 Mg Tablet) 5 mg PO DAILY [facility]; Protocol Last Admin: 07/19/23 10:19 Dose: 5 mg Documented By: GAIL Enoxaparin Sodium (Enoxaparin Sodium 40 Mg/0.4 Ml Syringe) 40 mg SUBCUT Q24H [facility] Last Admin: 07/19/23 08:18 Dose: 40 mg Documented By: GAIL Gabapentin (Gabapentin 100 Mg Capsule) 100 mg PO TID [facility] Last Admin: 07/19/23 08:18 Dose: 100 mg Documented By: GAIL Acyclovir Sodium 750 mg/ (Sodium Chloride) 265 mls @ 265 mls/hr IV Q8H [facility] Last Infusion: 07/19/23 14:47 Dose: Infused Documented By: GAIL Morphine Sulfate (Morphine Sulfate 2 Mg/Ml Cartridge) 2 mg IVPUSH Q4H PRN; Protocol PRN Reason: Pain, Severe (Pain Scale 7-10) Last Admin: 07/19/23 12:20 Dose: 2 mg Documented By: GAIL Ondansetron HCl (Ondansetron Hcl 4 Mg/2 Ml Vial) 4 mg IVPUSH Q8H PRN PRN Reason: Nausea and Vomiting Prednisone (Prednisone 20 Mg Tablet) 40 mg PO DAILY [facility] Last Admin: 07/19/23 08:18 Dose: 40 mg Documented By: GAIL Sodium Chloride (0.9 % Sodium Chloride Flush 3 Ml Syringe) [facility] Last Admin: 07/19/23 08:18 Dose: 3 ml Documented By: GAIL Sodium Chloride (0.9 % Sodium Chloride Flush 10 Ml Syringe) 5 ml IVFLUSH [facility] Last Admin: 07/19/23 08:18 Dose: 5 ml Documented By: GAIL Labs 07/16/23 05:53 07/18/23 05:32 Assessment and Plan (1) Herpes zoster encephalitis: Status: Acute (2) ARCELIA (acute kidney injury): Status: Resolved (3) Seizure: Status: Resolved (4) Shingles rash: Status: Acute Plan A 58 years old male with no PMH who presents to the hospital for evaluation of back painful rash. Fell and had seizure activity in ED. New onset seizure d/t Varicella Zooster encephalitis Improving, No recurrence of seizure Ativan PRN if needed for seizure CT scan negative for masses\bleed LP showed elevated WBCs and Protein. Encphalitis panel positive for VZ Acyclovir 750mg Q8 (started 07/14) Hold on seizure meds for now, Seizure precautions Neurology input appreciated, 7 to 10 days of IV Acyclovir Blood cultures NG at 48 hrs ID input appreciated, Acyclovir IV for 2 weeks Has a midline for IV Acyclovir Skin rash Follows L2 dermatome on left side 2/2 Zooster rash; on Acyclovir Prednisone PO Gabapentin for pain Acute kidney injury , likely pre renal and resolved Scalp hematoma 2/2 fall clean and covered, monitor DVT PPx Dispo: Awaiting dispo for IV Abx, waiting on Peer to Peer review with insurance Quality Stroke Does the patient have a stroke diagnosis?: No VTE Prior VTE?: No VTE Risk Level:: Medical - moderate - high VTE Device Contraindication: N/A - Device Ordered VTE Drug Contraindication: Treatment Not Indicated
[2023-07-20] MEDS: Morphine Sulfate 2 MG/ML CARTRIDGE IVPUSH ×3 (02:09→12:17)
[2023-07-20 03:19] VITALS: BP 154/89; PULSE 61; RESP 16; TEMP 36.3; O2SAT 94
[2023-07-20 07:35] VITALS: BP 160/96; PULSE 64; RESP 18; TEMP 36.7; O2SAT 96
[2023-07-20] MEDS: Gabapentin 100 MG CAPSULE PO ×3 (08:06→19:43)
[2023-07-20] MEDS: amLODIPine Besylate 5 MG TABLET PO (08:06)
[2023-07-20] MEDS: predniSONE 20 MG TABLET 40 MG PO (08:06)
[2023-07-20] MEDS: 0.9 % Sodium Chloride Flush 10 ML SYRINGE 5 ML IVFLUSH ×3 (08:07→23:56)
[2023-07-20] MEDS: 0.9 % Sodium Chloride Flush 3 ML SYRINGE IVFLUSH (08:07)
[2023-07-20] MEDS: Enoxaparin Sodium 40 MG/0.4 ML SYRINGE SUBCUT (10:53)
[2023-07-20] MEDS: Butalb/Acetamin/Caff 50/325/40 TABLET 1 TAB PO ×2 (11:00→19:51)
--- NOTE | 2023-07-20 11:33 | HO.PM.IMPN ---
Subjective Subjective Date of Service: 07/20/23 Interval History: No new issues, waiting on placement Physical Exam Vital Signs: Vital Signs: Last Vital Signs Temp 98.0 F 07/20/23 07:35 Pulse 64 07/20/23 07:35 Resp 18 07/20/23 07:35 BP 160/96 H 07/20/23 07:35 Pulse Ox 96 07/20/23 07:35 O2 Del Method Room Air 07/20/23 07:35 BMI result Body Mass Index 33.1 Const: Other: Constitutional : Awake, interactive, not in distress Neck : Normal inspection, Supple Cardiovascular : RRR, no JVP, no lower extremity edema Respiratory : good bilateral air entry, no crackles, wheezes or rhonchi Gastrointestinal: soft, lax, Normal bowel sounds, Non tender Skin : Warm, Dry, vesicular rash in his back to left side, no drainage. Neurological : Alert & oriented x3, moving extremities, Objective Data Active Medications Acetaminophen (Acetaminophen 325 Mg Tablet) 650 mg PO Q6H PRN PRN Reason: Pain, Mild (Pain Scale 1-3) Last Admin: 07/15/23 21:00 Dose: 650 mg Documented By: GUZMAN Acetaminophen/Butalbital/Caffeine (Butalb/Acetamin/Caff 50/325/40 Tablet) 1 tab PO Q4H PRN PRN Reason: Headache Last Admin: 07/20/23 11:00 Dose: 1 tab Documented By: MISTY Albuterol Sulfate (Albuterol Sulfate 90 Mcg 8 Gm Inhaler) 2 puff INHALE QID PRN PRN Reason: wheezing Amlodipine Besylate (Amlodipine Besylate 5 Mg Tablet) 5 mg PO DAILY [facility]; Protocol Last Admin: 07/20/23 08:06 Dose: 5 mg Documented By: MISTY Enoxaparin Sodium (Enoxaparin Sodium 40 Mg/0.4 Ml Syringe) 40 mg SUBCUT Q24H [facility] Last Admin: 07/20/23 10:53 Dose: 40 mg Documented By: MISTY Gabapentin (Gabapentin 100 Mg Capsule) 100 mg PO TID [facility] Last Admin: 07/20/23 08:06 Dose: 100 mg Documented By: MISTY Acyclovir Sodium 750 mg/ (Sodium Chloride) 265 mls @ 265 mls/hr IV Q8H [facility] Last Infusion: 07/20/23 06:42 Dose: Infused Documented By: FEI Morphine Sulfate (Morphine Sulfate 2 Mg/Ml Cartridge) 2 mg IVPUSH Q4H PRN; Protocol PRN Reason: Pain, Severe (Pain Scale 7-10) Last Admin: 07/20/23 08:06 Dose: 2 mg Documented By: MISTY Ondansetron HCl (Ondansetron Hcl 4 Mg/2 Ml Vial) 4 mg IVPUSH Q8H PRN PRN Reason: Nausea and Vomiting Prednisone (Prednisone 20 Mg Tablet) 40 mg PO DAILY [facility] Last Admin: 07/20/23 08:06 Dose: 40 mg Documented By: MISTY Sodium Chloride (0.9 % Sodium Chloride Flush 3 Ml Syringe) [facility] Last Admin: 07/20/23 08:07 Dose: 3 ml Documented By: MISTY Sodium Chloride (0.9 % Sodium Chloride Flush 10 Ml Syringe) 5 ml IVFLUSH [facility] Last Admin: 07/20/23 08:07 Dose: 5 ml Documented By: MISTY Labs 07/16/23 05:53 07/18/23 05:32 Microbiology Microbiology Results: Microbiology 07/14/23 17:13 Blood Culture - Final Blood - Venous No growth after 5 days. 07/14/23 16:39 Blood Culture - Final Blood - Venous No growth after 5 days. Assessment and Plan (1) Herpes zoster encephalitis: Status: Acute (2) ARCELIA (acute kidney injury): Status: Resolved (3) Seizure: Status: Resolved (4) Shingles rash: Status: Acute Plan A 58 years old male with no PMH who presents to the hospital for evaluation of back painful rash. Fell and had seizure activity in ED. New onset seizure d/t Varicella Zooster encephalitis Improving, No recurrence of seizure Ativan PRN if needed for seizure CT scan negative for masses\bleed LP showed elevated WBCs and Protein. Encphalitis panel positive for VZ Acyclovir 750mg Q8 (started 07/14) Hold on seizure meds for now, Seizure precautions Neurology input appreciated, 7 to 10 days of IV Acyclovir Blood cultures NG at 48 hrs ID input appreciated, Acyclovir IV for 2 weeks Has a midline for IV Acyclovir, Outpatient IV Acyclovir is proving difficult, I will discuss PO option with ID since he has now received 7 days of IV as suggested by Neuro Skin rash Follows L2 dermatome on left side 2/2 Zooster rash; on Acyclovir Prednisone PO Gabapentin for pain Acute kidney injury , likely pre renal and resolved HTN on no meds, started on Norvasc 5 daily, inrease to 10 by tomorrow if remains elevated Scalp hematoma 2/2 fall clean and covered, monitor DVT PPx Dispo: Awaiting dispo for IV Abx, waiting on Peer to Peer review with insurance Quality Stroke Does the patient have a stroke diagnosis?: No VTE Prior VTE?: No VTE Risk Level:: Medical - moderate - high VTE Device Contraindication: N/A - Device Ordered VTE Drug Contraindication: Treatment Not Indicated
[2023-07-20 12:00] VITALS: BP 158/94; PULSE 82; RESP 18; TEMP 36.7; O2SAT 92
--- NOTE | 2023-07-20 12:00 | MHC.CM.PN ---
DBFaustina was contacted via [employer]. DB has been notified that [facility] MDs have called the number provided for the Peer to Peer; but have not received a return call for the Peer to Peer. A message was received. The facility is going to contact Claudio null. STEVE will continue to follow.
[2023-07-20 15:10] VITALS: BP 133/63; PULSE 78; RESP 18; TEMP 36; O2SAT 94
[2023-07-20] MEDS: oxyCODONE HCl Immed Release 5 MG TABLET PO (18:42)
[2023-07-20 19:48] VITALS: BP 158/63; PULSE 77; RESP 18; TEMP 36.2; O2SAT 96
[2023-07-20] MEDS: Acetaminophen 325 MG TABLET 650 MG PO (19:52)
[2023-07-20 23:53] VITALS: BP 168/90; PULSE 77; RESP 17; TEMP 36.3; O2SAT 95
[2023-07-21] MEDS: oxyCODONE HCl Immed Release 5 MG TABLET PO ×4 (00:29→21:18)
[2023-07-21] MEDS: Butalb/Acetamin/Caff 50/325/40 TABLET 1 TAB PO ×3 (00:29→18:17)
[2023-07-21 03:42] VITALS: BP 139/68; PULSE 66; RESP 18; TEMP 36.1; O2SAT 95
[2023-07-21] MEDS: Morphine Sulfate Immed Release 15 MG TABLET PO ×3 (04:46→18:17)
[2023-07-21 07:44] VITALS: BP 160/97; PULSE 75; RESP 18; TEMP 36.1; O2SAT 96
[2023-07-21] MEDS: amLODIPine Besylate 5 MG TABLET PO (08:19)
[2023-07-21] MEDS: predniSONE 20 MG TABLET 40 MG PO (08:19)
[2023-07-21] MEDS: Gabapentin 100 MG CAPSULE PO ×3 (08:20→22:05)
[2023-07-21] MEDS: 0.9 % Sodium Chloride Flush 3 ML SYRINGE IVFLUSH ×2 (08:23→15:24)
[2023-07-21] MEDS: 0.9 % Sodium Chloride Flush 10 ML SYRINGE 5 ML IVFLUSH ×2 (08:23→23:22)
[2023-07-21] MEDS: Enoxaparin Sodium 40 MG/0.4 ML SYRINGE SUBCUT (08:24)
--- NOTE | 2023-07-21 11:06 | HO.PM.IMPN ---
Subjective Subjective Date of Service: 07/21/23 Interval History: No new issues, waiting on placement Physical Exam Vital Signs: Vital Signs: Last Vital Signs Temp 96.9 F 07/21/23 07:44 Pulse 75 07/21/23 07:44 Resp 18 07/21/23 07:44 BP 160/97 H 07/21/23 07:44 Pulse Ox 96 07/21/23 07:44 O2 Del Method Room Air 07/21/23 07:44 BMI result Body Mass Index 33.1 Const: Other: Constitutional : Awake, interactive, not in distress Neck : Normal inspection, Supple Cardiovascular : RRR, no JVP, no lower extremity edema Respiratory : good bilateral air entry, no crackles, wheezes or rhonchi Gastrointestinal: soft, lax, Normal bowel sounds, Non tender Skin : Warm, Dry, vesicular rash in his back to left side, no drainage. Neurological : Alert & oriented x3, moving extremities, Objective Data Active Medications Acetaminophen (Acetaminophen 325 Mg Tablet) 650 mg PO Q6H PRN PRN Reason: Pain, Mild (Pain Scale 1-3) Last Admin: 07/20/23 19:52 Dose: 650 mg Documented By: JAREN Acetaminophen/Butalbital/Caffeine (Butalb/Acetamin/Caff 50/325/40 Tablet) 1 tab PO Q4H PRN PRN Reason: Headache Last Admin: 07/21/23 00:29 Dose: 1 tab Documented By: SHAMA Albuterol Sulfate (Albuterol Sulfate 90 Mcg 8 Gm Inhaler) 2 puff INHALE QID PRN PRN Reason: wheezing Amlodipine Besylate (Amlodipine Besylate 5 Mg Tablet) 5 mg PO DAILY [facility]; Protocol Last Admin: 07/21/23 08:19 Dose: 5 mg Documented By: DANIA Enoxaparin Sodium (Enoxaparin Sodium 40 Mg/0.4 Ml Syringe) 40 mg SUBCUT Q24H [facility] Last Admin: 07/21/23 08:24 Dose: 40 mg Documented By: DANIA Gabapentin (Gabapentin 100 Mg Capsule) 100 mg PO TID [facility] Last Admin: 07/21/23 08:20 Dose: 100 mg Documented By: DANIA Acyclovir Sodium 750 mg/ (Sodium Chloride) 265 mls @ 265 mls/hr IV Q8H [facility] Last Infusion: 07/21/23 08:35 Dose: Infused Documented By: DANIA Morphine Sulfate (Morphine Sulfate Immed Release 15 Mg Tablet) 15 mg PO Q6H PRN PRN Reason: Pain, Severe (Pain Scale 7-10) Last Admin: 07/21/23 04:46 Dose: 15 mg Documented By: SHAMA Ondansetron HCl (Ondansetron Hcl 4 Mg/2 Ml Vial) 4 mg IVPUSH Q8H PRN PRN Reason: Nausea and Vomiting Oxycodone HCl (Oxycodone Hcl Immed Release 5 Mg Tablet) 5 mg PO Q6H PRN PRN Reason: Pain, Severe (Pain Scale 7-10) Last Admin: 07/21/23 08:21 Dose: 5 mg Documented By: DANIA Prednisone (Prednisone 20 Mg Tablet) 40 mg PO DAILY [facility] Last Admin: 07/21/23 08:19 Dose: 40 mg Documented By: DANIA Sodium Chloride (0.9 % Sodium Chloride Flush 3 Ml Syringe) [facility] Last Admin: 07/21/23 08:23 Dose: 3 ml Documented By: DANIA Sodium Chloride (0.9 % Sodium Chloride Flush 10 Ml Syringe) 5 ml IVFLUSH [facility] Last Admin: 07/21/23 08:23 Dose: 5 ml Documented By: DANIA Labs 07/16/23 05:53 07/18/23 05:32 Assessment and Plan (1) Herpes zoster encephalitis: Status: Acute (2) ARCELIA (acute kidney injury): Status: Resolved (3) Seizure: Status: Resolved (4) Shingles rash: Status: Acute Plan A 58 years old male with no PMH who presents to the hospital for evaluation of back painful rash. Fell and had seizure activity in ED. New onset seizure d/t Varicella Zooster encephalitis Improving, No recurrence of seizure Ativan PRN if needed for seizure CT scan negative for masses\bleed LP showed elevated WBCs and Protein. Encphalitis panel positive for VZ Acyclovir 750mg Q8 (started 07/14) No seizure meds per neuro Neuro and ID recommends IV Acyclovir, for 14 days, 6 more days after today Skin rash Follows L2 dermatome on left side 2/2 Zooster rash; on Acyclovir Prednisone PO Gabapentin for pain Acute kidney injury , likely pre renal and resolved HTN on no meds, started on Norvasc 5 daily, inrease to 10 by tomorrow if remains elevated Scalp hematoma 2/2 fall clean and covered, monitor DVT PPx Dispo: Awaiting dispo for IV Abx, waiting on Peer to Peer review with insurance Quality Stroke Does the patient have a stroke diagnosis?: No VTE Prior VTE?: No VTE Risk Level:: Medical - moderate - high VTE Device Contraindication: N/A - Device Ordered VTE Drug Contraindication: Treatment Not Indicated
[2023-07-21 11:25] VITALS: BP 158/80; PULSE 77; RESP 18; TEMP 36.2; O2SAT 94
[2023-07-21 15:30] VITALS: BP 141/79; PULSE 82; RESP 18; TEMP 36.2; O2SAT 95
--- NOTE | 2023-07-21 16:16 | MHC.CM.PN ---
PER MD PEER TO PEER WAS COMPLETED 07/20 AND WAS TOLD [facility] WOULD SEND APPROVAL. PER [facility] THEY HAVE NOT RECEIVED APPROVAL, THEY CONTACTED [facility] WHO SAYS APPROVAL IS IN PROCESS. THIS CM REQUESTED TO SEND PATIENT TO [facility] TODAY, WE ARE EXPECTING APPROVAL. NO RESPONSE FROM [facility]. CM WILL FOLLOW UP TOMORROW.
[2023-07-21 19:36] VITALS: BP 172/98; PULSE 86; RESP 18; TEMP 37; O2SAT 97
[2023-07-21] MEDS: Carbamide Peroxide 6.5% Otic 15 ML DRPBTL 5 DROP EAR-BOTH (21:18)
[2023-07-21] MEDS: Calcium Carbonate 750 MG TAB.CHEW PO (22:05)
[2023-07-22] VITALS (7 sets, daily range): BP systolic 95–167; BP diastolic 49–90; PULSE 63–84; RESP 16–18; TEMP 35.9–36.6; O2SAT 94–99
[2023-07-22] MEDS: Morphine Sulfate Immed Release 15 MG TABLET PO ×4 (00:01→20:43)
[2023-07-22] MEDS: oxyCODONE HCl Immed Release 5 MG TABLET PO ×3 (04:32→18:20)
[2023-07-22] MEDS: Carbamide Peroxide 6.5% Otic 15 ML DRPBTL 5 DROP EAR-BOTH ×2 (07:53→20:59)
[2023-07-22] MEDS: 0.9 % Sodium Chloride Flush 3 ML SYRINGE IVFLUSH ×2 (07:54→14:11)
[2023-07-22] MEDS: Butalb/Acetamin/Caff 50/325/40 TABLET 1 TAB PO ×3 (07:54→18:19)
[2023-07-22] MEDS: amLODIPine Besylate 5 MG TABLET PO (07:54)
[2023-07-22] MEDS: Gabapentin 100 MG CAPSULE PO ×3 (07:55→20:41)
[2023-07-22] MEDS: predniSONE 20 MG TABLET 40 MG PO (07:55)
--- NOTE | 2023-07-22 10:16 | P.PNIM_ITS ---
Subjective Subjective Date of Service: 07/23/23 Interval History: Continue to improve, with no new issues identified Physical Exam 2 Vital Signs: Vital Signs: Last Vital Signs Temp 97.1 F 07/22/23 07:41 Pulse 76 07/22/23 07:41 Resp 18 07/22/23 07:41 BP 160/83 H 07/22/23 07:41 Pulse Ox 95 07/22/23 07:41 O2 Del Method Room Air 07/22/23 07:41 BMI result Body Mass Index 33.1 Const: Other: Constitutional : Awake, interactive, not in distress Neck : Normal inspection, Supple Cardiovascular : RRR, no JVP, no lower extremity edema Respiratory : good bilateral air entry, no crackles, wheezes or rhonchi Gastrointestinal: soft, lax, Normal bowel sounds, Non tender Skin : Warm, Dry, vesicular rash in his back to left side, no drainage. Neurological : Alert & oriented x3, moving extremities, Objective Data Active Medications Acetaminophen (Acetaminophen 325 Mg Tablet) 650 mg PO Q6H PRN PRN Reason: Pain, Mild (Pain Scale 1-3) Last Admin: 07/20/23 19:52 Dose: 650 mg Documented By: JAREN Acetaminophen/Butalbital/Caffeine (Butalb/Acetamin/Caff 50/325/40 Tablet) 1 tab PO Q4H PRN PRN Reason: Headache Last Admin: 07/22/23 07:54 Dose: 1 tab Documented By: DANIA Albuterol Sulfate (Albuterol Sulfate 90 Mcg 8 Gm Inhaler) 2 puff INHALE QID PRN PRN Reason: wheezing Amlodipine Besylate (Amlodipine Besylate 5 Mg Tablet) 5 mg PO DAILY [facility]; Protocol Last Admin: 07/22/23 07:54 Dose: 5 mg Documented By: DANIA Calcium Carbonate (Calcium Carbonate 750 Mg Tab.Chew) 750 mg PO Q6H PRN PRN Reason: GI Upset Last Admin: 07/21/23 22:05 Dose: 750 mg Documented By: RA Carbamide Peroxide (Carbamide Peroxide 6.5% Otic 15 Ml Drpbtl) 5 drop EAR-BOTH BID [facility] Stop: 07/26/23 09:01 Last Admin: 07/22/23 07:53 Dose: 5 drop Documented By: DANIA Enoxaparin Sodium (Enoxaparin Sodium 40 Mg/0.4 Ml Syringe) 40 mg SUBCUT Q24H [facility] Last Admin: 07/21/23 08:24 Dose: 40 mg Documented By: DANIA Gabapentin (Gabapentin 100 Mg Capsule) 100 mg PO TID [facility] Last Admin: 07/22/23 07:55 Dose: 100 mg Documented By: DANIA Acyclovir Sodium 750 mg/ (Sodium Chloride) 265 mls @ 265 mls/hr IV Q8H [facility] Last Infusion: 07/22/23 07:16 Dose: Infused Documented By: DANIA Morphine Sulfate (Morphine Sulfate Immed Release 15 Mg Tablet) 15 mg PO Q6H PRN PRN Reason: Pain, Severe (Pain Scale 7-10) Last Admin: 07/22/23 07:54 Dose: 15 mg Documented By: DANIA Ondansetron HCl (Ondansetron Hcl 4 Mg/2 Ml Vial) 4 mg IVPUSH Q8H PRN PRN Reason: Nausea and Vomiting Oxycodone HCl (Oxycodone Hcl Immed Release 5 Mg Tablet) 5 mg PO Q6H PRN PRN Reason: Pain, Severe (Pain Scale 7-10) Last Admin: 07/22/23 04:32 Dose: 5 mg Documented By: SHAMA Prednisone (Prednisone 20 Mg Tablet) 40 mg PO DAILY [facility] Last Admin: 07/22/23 07:55 Dose: 40 mg Documented By: DANIA Sodium Chloride (0.9 % Sodium Chloride Flush 3 Ml Syringe) [facility] Last Admin: 07/22/23 07:54 Dose: 3 ml Documented By: DANIA Sodium Chloride (0.9 % Sodium Chloride Flush 10 Ml Syringe) 5 [facility] Last Admin: 07/22/23 07:17 Dose: Not Given Documented By: DANIA Non-Admin Reason: Duplicate Order Labs 07/16/23 05:53 07/18/23 05:32 Assessment and Plan (1) Herpes zoster encephalitis: Status: Acute (2) ARCELIA (acute kidney injury): Status: Resolved (3) Seizure: Status: Resolved (4) Shingles rash: Status: Acute Plan A 58 years old male with no PMH who presents to the hospital for evaluation of back painful rash. Fell and had seizure activity in ED. New onset seizure d/t Varicella Zoster encephalitis Improving, No recurrence of seizure Ativan PRN if needed for seizure CT scan negative for masses\bleed LP showed elevated WBCs and Protein. Encphalitis panel positive for VZ Acyclovir 750mg Q8 (started 07/14) for total of 14 per ID and Neuro Heres Zoster of L2 Dermatome -Prednisone PO -Gabapentin for pain Acute kidney injury , likely pre renal and resolved HTN on no meds, started on Norvasc 5 daily, inrease to 10 by tomorrow if remains elevated Scalp hematoma 2/2 fall clean and covered, monitor DVT PPx Dispo: Awaiting dispo for IV Abx. Peer to Peer Quality Stroke Does the patient have a stroke diagnosis?: No VTE Prior VTE?: No VTE Risk Level:: Medical - moderate - high VTE Device Contraindication: N/A - Device Ordered VTE Drug Contraindication: Treatment Not Indicated
[2023-07-22] MEDS: Calcium Carbonate 750 MG TAB.CHEW PO (20:55)
[2023-07-22] MEDS: 0.9 % Sodium Chloride Flush 10 ML SYRINGE 5 ML IVFLUSH (21:00)
[2023-07-23] MEDS: oxyCODONE HCl Immed Release 5 MG TABLET PO ×2 (00:01→06:03)
[2023-07-23] MEDS: Acetaminophen 325 MG TABLET 650 MG PO ×3 (00:01→13:25)
[2023-07-23 03:25] VITALS: BP 121/71; PULSE 69; RESP 16; TEMP 36; O2SAT 94
[2023-07-23] MEDS: Morphine Sulfate Immed Release 15 MG TABLET PO ×2 (03:46→09:40)
[2023-07-23 07:27] VITALS: BP 150/79; PULSE 81; RESP 16; TEMP 36.8; O2SAT 95
[2023-07-23] MEDS: amLODIPine Besylate 5 MG TABLET PO ×2 (08:31→11:10)
[2023-07-23] MEDS: predniSONE 20 MG TABLET 40 MG PO (08:31)
[2023-07-23] MEDS: Gabapentin 100 MG CAPSULE PO (08:31)
[2023-07-23] MEDS: 0.9 % Sodium Chloride Flush 3 ML SYRINGE IVFLUSH (08:31)
[2023-07-23] MEDS: Carbamide Peroxide 6.5% Otic 15 ML DRPBTL 5 DROP EAR-BOTH (08:32)
[2023-07-23] MEDS: Enoxaparin Sodium 40 MG/0.4 ML SYRINGE SUBCUT (09:40)
[2023-07-23] MEDS: 0.9 % Sodium Chloride Flush 10 ML SYRINGE 5 ML IVFLUSH (09:40)
--- NOTE | 2023-07-23 09:40 | P.DS_ITS ---
DS: Providers Provider Date of Service: 07/23/23 Date of admission: 07/14/23 16:33 Primary care physician: Landon Gayle MD Consults: 07/14/23 15:53 Consult to Neurology Routine Consulting Provider: [facility] [place] Reason for consultation: New onset seizure 07/14/23 16:26 Consult to Infectious Diseases [place]ine [place]ing [place] [facility] [place] Disease Reason for consultation: Fever, seizure, skin infx ? 07/16/23 10:32 Consult to Wound Care Routine Reason for consultation: shingles to left lower back 07/16/23 12:14 Consult to Wound Care Routine Reason for consultation: Shingles DS: Diagnosis Discharge Diagnosis (1) Herpes zoster encephalitis: Status: Acute (2) ARCELIA (acute kidney injury): Status: Resolved (3) Seizure: Status: Resolved (4) Shingles rash: Status: Acute DS: Summary Hospital Course Hospital Course: Admission note HPI A 58 years old male with no PMH who presents to the hospital for evaluation of back painful rash. He was evaluated few days ago for loin and back pain as well and investigations showed Kidney cyst but he did not have a rash there. he developed vesicular rash on the left side of his L2 level. The patient was witnessed to have 30 sec seizure while leaving the emergency that looked tonic- clonic. He was walking out when he stopped, fell, hit his head and started the seizure. No loss of bowel or urine control. He was post-ictal after the incident. No chest pain, palpitations, SOB, nausea, vomiting, diarrhea or urinary symptoms. A CT scan was done immedietly not showing any evidence of bleeding. Admitted for further evaluation and treatment. Hospital course the patient was admitted to the hospital for evaluation of # New onset seizure Secondary to Varicella Zoster encephalitis as confirmed by Encephalitis panel. CT scan was negative for masses\bleed. LP showing elevated WBCs and Protein. Encphalitis panel positive for VZ. blood cultures remained negative. HIV negative. The patient general condition improved with No recurrence of seizure as he was treated with Acyclovir 750mg Q8 (started 07/14) as he was evaluated by ID and neurology who recommended 14 days total of IV Acyclovir. Neurology recommended to hold on seizure meds for now. Midline was placed and he will be discharged to SNF to complete his Acyclovir course. # Shingles Follows L2 dermatome on left side secondary to Zooster rash; on Acyclovir. Treated with Prednisone for 10 days and to continue Gabapentin for pain management. # Acute kidney injury -- Resolved with IV fluids. # Scalp hematoma 2/2 fall clean and covered, monitor, resolving #HTN--Blood pressures have been high, on no meds Started on Norvasc and adjusted to 10 mg daily and will need a follow up with a pCP Plan Continue Acyclovir for 5 more day ending 07/27/23 for Herpes Encephalitis Local care for Shingles, Gabapentin for pain management Follow with neurology as outpatient as needed Time Attestation Discharge coordination time: Greater than 30 minutes Quality: Safe Use of Opioids Does Pt have an Active Cancer Diagnosis on the Problem List?: No Quality: Stroke Does the patient have a stroke diagnosis?: No Physical Exam Vital Signs: Vital Signs: Last Vital Signs Temp 98.3 F 07/23/23 07:27 Pulse 81 07/23/23 07:27 Resp 16 07/23/23 07:27 BP 150/79 H 07/23/23 07:27 Pulse Ox 95 07/23/23 07:27 O2 Del Method Room Air 07/23/23 07:27 BMI result Body Mass Index 33.1 Const: Other: Constitutional : Awake, interactive, not in distress Neck : Normal inspection, Supple Cardiovascular : RRR, no JVP, no lower extremity edema Respiratory : good bilateral air entry, no crackles, wheezes or rhonchi Gastrointestinal: soft, lax, Normal bowel sounds, Non tender Skin : Warm, Dry, vesicular rash in his back to left side, no drainage. Neurological : Alert & oriented x3, moving extremities, Discharge Plan Discharge Anticipated Discharge Date/Time: 07/23/23 09:57 Patient Disposition: Xfer SNF Discharge Diagnosis: Herpes Zoster Encephalitis Referrals: [facility] [Outside] - 1 Week Landon Gayle MD [Primary Care Provider] - 1 Week Discharge Medications: New gabapentin 100 mg Capsule 200 mg PO TID Qty: 180 0RF morphine 15 mg Tablet 15 mg PO Q6H PRN (Reason: Pain, Severe (Pain Scale 7-10)) Qty: 20 0RF Rx Instructions: Partial Fill upon patient request. acyclovir sodium 50 mg/mL Solution 750 mg IV Q8H 5 Days Qty: 225 0RF Rx Instructions: 5 days including today 07/23/23, ending 07/27/23 amlodipine [Norvasc] 10 mg tablet 10 mg PO DAILY Qty: 90 1RF Continued albuterol sulfate 90 mcg/actuation HFA aerosol inhaler 2 puff inhalation QID PRN (Reason: wheezing) Discharge Orders: Discharge Order (Routine); Ordered 07/23/23 Ordered By: Darion Casey Diet: Advance to usual diet Activity on Discharge: As tolerated Stand Alone Forms: Patient Portal Discharge page, Work/School Release Care Plan Goals: Read below Health Concerns: Read below Plan of Treatment: Read below Assessment: You developed seizure in ED. Found to have viral brain infection consistent with herpez encephalitis. You were evaluated by brain images and neurologist and you recommended to be treated with IV Acyclovir for a total of 14 days, started on 07/14/23, ending 07/27/23 Local care for Shingles, Gabapentin for pain management Prednisone for shingles Follow with neurology as outpatient as needed Follow up with your primary care doctor in a week to 2 weeks Patient Instructions: Turner (ED)
--- NOTE | 2023-07-23 11:07 | PC.NURSE ---
Pt arrived with right upper arm midline not functioning, according to Dr Casey. Dressing, Statlock and Biopatch removed. Midline catheter was kinked at insertion site. Once catheter was straightened, blood was obtained and catheter flushed easily. J loop, clave, Biopatch, Statlock and Tegaderm dressing replaced per protocol.
[2023-07-23 11:15] VITALS: BP 160/90; PULSE 85; RESP 18; TEMP 36.1; O2SAT 97
[2023-07-23 12:20] VITALS: BP 146/88
--- NOTE | 2023-07-23 12:40 | MHC.CM.PN ---
Patient is discharged today to [facility] via BLS.
--- NOTE | 2023-07-23 13:20 | PC.NURSE ---
Pharmacy contacted at 1130 to see if Acyclovir could be brought up early to floor as pt has D/C scheduled for 12:30, Med takes 1 hour to infuse. Medication was not able to be brought up early. Medication was not started because ambulance scheduled for 12:30, would not be enough time to infuse medication.
--- NOTE | 2023-07-23 13:49 | PC.NURSE ---
Called [facility] to give report to nurse, was unable to speak with receiving staff, name and number left for facility to call back.
== END 2023-07-23 13:45 | disposition skilled nursing facility (03) | DRG 50 ==
LOC: HO.ED 16:13 → HO.EDOVER 16:18 → HO.IMC 19:26 → HO.S3 07-16 09:28
PROVIDERS: Internal Medicine; Physician Assistant; Physician Assistant Medical; Admitting Provider Student in an Organized Health Care Education/Training Program; Emergency Provider Emergency Medicine; PCP Internal Medicine; Visit Provider Internal Medicine
PROC: 05HB33Z Insertion of Infusion Device into Right Basilic Vein, Percutaneous Approach (ICD-10-PCS; principal; 2023-07-17 11:00)
DX: B02.0 Zoster encephalitis (principal); N17.9 Acute kidney failure, unspecified; R56.9 Unspecified convulsions; I10 Essential (primary) hypertension; S00.03XA Contusion of scalp, initial encounter; W19.XXXA Unspecified fall, initial encounter; Z20.822 Contact with and (suspected) exposure to COVID-19; Z79.899 Other long term (current) drug therapy
CPT/HCPCS: 36410; 36415; 70450; 71045; 71260; 72125; 74177; 80048; 80076; 81003; 82570; 82945; 82947; 83605; 84157; 84300; 84484; 85025; 85027; 85610; 85652; 86140; 87015; 87040; 87070; 87205; 87389; 87483; 87502; 87635; 89051; 93005; 97161; 99285; C1751; J0133; J1650; J2060; J2270; J3370; Q9967

== ENCOUNTER → 2023-07-14 11:30 | Outpatient (BNV) | payer BC, SELFPAY | PROVIDERS: Admitting Provider Student in an Organized Health Care Education/Training Program; Emergency Provider Emergency Medicine; Visit Provider Internal Medicine Cardiovascular Disease | DX: R94.31 Abnormal electrocardiogram [ECG] [EKG] (principal) | CPT/HCPCS: 93010 ==

== ENCOUNTER → 2023-07-14 16:33 | Outpatient (BNV) | payer BC, SELFPAY | PROVIDERS: Admitting Provider Student in an Organized Health Care Education/Training Program; Emergency Provider Emergency Medicine; Visit Provider Student in an Organized Health Care Education/Training Program | DX: B02.0 Zoster encephalitis (principal); N17.9 Acute kidney failure, unspecified; R56.9 Unspecified convulsions; B02.9 Zoster without complications | CPT/HCPCS: 99223; 99232; 99233; 99239 ==

== ENCOUNTER → 2023-07-14 16:33 | Outpatient (BNV) | payer BC, SELFPAY | PROVIDERS: Admitting Provider Student in an Organized Health Care Education/Training Program; Emergency Provider Emergency Medicine; PCP Internal Medicine; Visit Provider Internal Medicine | DX: B02.0 Zoster encephalitis (principal) | CPT/HCPCS: 99222; 99499 ==

== ENCOUNTER 2023-08-01 16:58 | Emergency (ER) | payer BC, SELFPAY ==
--- NOTE | ~2023-08-01 | CT_ITS ---
EXAMINATION: CT brain and CT cervical spine without contrast. CLINICAL INDICATION: Fall and hit head. COMPARISON: CT brain 07/14/2023. TECHNIQUE: 5 mm thin axial and reformatted 2 mm thin sagittal and coronal images of brain were obtained. Subsequently axial 3 mm thin and reformatted 2 mm thin sagittal and coronal images of cervical spine were obtained without contrast. DLP 1349. This CT examination was performed using dose optimization technique as appropriate, variously including the following: Automated exposure control Adjustment of MA and/or KV according to patient size(this includes techniques or standardized protocols for targeted exams where dose is matched to indication/reason for exam; extremities or head. Use of iterative reconstruction techniques. FINDINGS: BRAIN: There is no acute intra-axial, extra-axial bleed, masses or midline shift.. The walton to white matter differentiation is maintained normal. The lateral ventricles are symmetrical in size and configuration without enlargement. Bone windows reveal no calvarial abnormality. However there is diffuse hyperdense skin thickening along bilateral frontal scalp. The paranasal sinuses and mastoid air cells are aerated and clear. Previously visualized subgaleal hematoma has resolved. CERVICAL SPINE: There is mild straightening of cervical lordosis. The vertebral heights and alignment is normal. There is loss of C3-C4, C4-C5, C5-C6, C6/C7 and C7-T1 disc levels with mild ventral and posterior spondylosis. The craniovertebral junction and the C1-C2 alignment is normal. The prevertebral and paravertebral soft tissues are normal. The airway is widely patent. The lung apices are clear CT/CT cervical spine wo IV con IMPRESSION: No acute intracranial process seen. Mild straightening of cervical lordosis without any acute fracture or dislocation. Degenerative disc changes and spondylosis throughout cervical spine as described above.
[2023-08-01 17:55] VITALS: BP 167/84; PULSE 85; RESP 14; TEMP 36.9; O2SAT 100; BMI 31.3
--- NOTE | 2023-08-01 18:03 | ED_ITS ---
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 finished the course of 2 weeks of acyclovir IV is still complaining of heaviness in the head with dizziness patient is not going away increases on bending down no nausea no vomiting no fever no chills no new seizures patient had a CT scan of the head and C-spine and labs done prior to my evaluation which was normal Related Data Home Medications Medication Instructions Recorded Confirmed albuterol sulfate 90 mcg/actuation 2 puff inhalation QID PRN wheezing 07/14/23 07/14/23 aerosol inhaler Previous Rx's Medication Instructions Recorded gabapentin 100 mg capsule 200 mg (2 x 100 mg) PO TID #180 07/18/23 caps acyclovir sodium 50 mg/mL 750 mg (15 mL) IV Q8H 5 days #225 07/23/23 intravenous solution mL amlodipine 10 mg tablet (Norvasc) 10 mg PO DAILY #90 tabs 07/23/23 morphine 15 mg immediate release 15 mg PO Q6H PRN Pain, Severe 07/23/23 tablet (Pain Scale 7-10) #20 tabs tramadol 50 mg tablet 50 mg PO Q6H PRN pain #20 tabs 08/02/23 Allergies Allergy/AdvReac Type Severity Reaction Status Date / Time No Known Allergies Allergy Verified 07/14/23 11:01 Review of Systems 2 Review of Systems: Yes all other systems are reviewed and are negative FOR[facility]LY [facility] Past Medical History Medical History No pertinent past medical history Social History Social History Household Members: Children Housing: House Do you presently have visiting nurse or other home services: No Alcohol intake: never Comment: sezuire precautions Patient Tobacco Use Status: Never used Tobacco Smoked in Last 30 Days: Yes Use of substances other than those prescribed or required for medical reasons: No Substance Use Type: Marijuana Advance Directives: Yes Advance Directives on File: Yes Advance Directives Date on File: 07/24/23 service: No Physical Exam ED Vital Signs: Vital Signs - 24 hr 08/01/23 17:55 08/01/23 23:56 08/02/23 00:45 Temperature 98.5 F 98.3 F 98.2 F Pulse Rate 85 73 73 Respiratory Rate 14 20 16 Blood Pressure 167/84 H 164/88 H Pulse Oximetry 100 94 98 Oxygen Delivery Method Room Air Room Air Room Air BMI result Body Mass Index 31.3 Appearance: Alert. Oriented X3. No acute distress. Eyes: PERRLA, No Nystagmus normal fundus ENT: Pharynx normal. Oral Mucosa moist Neck: Normal inspection. Neck supple. CVS: Normal heart rate and rhythm. Pulses normal. Respiratory: No respiratory distress. Equal air entry bilateral, no wheezing/rales/rhonchi Abdomen: Soft and nontender. Bowel sounds are present, no mass palpable, no CVA tenderness Skin: Skin warm and dry. Normal skin color. Normal skin turgor. Healed vesicular rash of the lumbar area Extremities: No lower extremity edema. No calf tenderness Neuro: Oriented X 3. No motor deficit. No sensory deficit.No cerebellar signs , cranial nerves II-XII intact Course Course Course Narrative: RME: 58 yold male presents to ED for right posterior headache for the past 14 days since falling and hitting his head 14 days ago. Patient denies any new trauma since then but have headache in the same airway hit his head for the past 14 days. Patient denies any neck stiffness, fever, chills, chest pain, or shortness of breath. Medications Administered Discontinued Medications Generic Name Dose Route Start Last Admin Trade Name Freq PRN Reason Stop Dose Admin Tramadol HCl 50 mg 08/02/23 01:08 08/02/23 02:40 Tramadol Hcl 50 Mg Tablet PO 08/02/23 01:09 50 mg ONCE ONE Administration Procedures Lumbar Puncture Time Out Performed: Yes Patient Position: upright Skin Prep: 0.5% Chlorhexidine/Alcohol Local Anesthetic: lidocaine 1% Amount of anesthesia used (mL): 5 Spinal Needle Gauge: Other (25 g) Interspace Used: L4-L5 Fluid Initially Obtained: clear Complications: none Medical Decision Making Medical Decision Making [facility] Narrative: Patient with post viral herpes encephalitis with headache repeat CSF negative for significant lymphocytes cultures pending discharge patient home on tramadol unlikely infectious cause Differential Diagnosis Differential Diagnoses: The differential diagnosis associated with the presentation includes Encephalitis/generalized headache slight tension headache/migraine Lab Data [facility] Lab Attestation statement: I reviewed the patient's lab results. 08/01/23 18:34 08/01/23 18:34 Labs: Lab Results 08/01/23 08/02/23 08/02/23 Range/Units 18:34 01:04 01:04 WBC 9.9 (4.8-10.8) X10*3/uL RBC 4.40 L (4.60-5.80) X10*6/uL Hgb 13.5 L (14.0-18.0) g/dl Hct 40.4 L (42.0-52.0) % MCV 91.8 (80.0-98.0) fL MCH 30.7 (27.0-33.0) pg MCHC 33.4 (31.0-36.0) g/dl RDW 14.3 (11.0-16.0) % Plt Count 262 (160-400) X10*3/uL MPV 9.4 (9.4-12.4) fL Immature Gran % (Auto) 0.1 (0.0-0.4) % Neut % (Auto) 73.8 H (45-73) % Lymph % (Auto) 14.5 L (20-40) % Rowan % (Auto) 9.7 (2-11) % Eos % (Auto) 1.5 (0-4) % Baso % (Auto) 0.4 (0-2) % Lymph # (Auto) 1.4 (1.2-4.9) X10*3/uL Rowan # (Auto) 1.0 (0.1-1.2) X10*3/uL Eos # (Auto) 0.2 (0.0-0.4) X10*3/uL Baso # (Auto) 0.0 (0.0-0.2) X10*3/uL Abs Immat Gran (auto) 0.01 (0.00-0.03) X10*3/uL Absolute Neuts (auto) 7.3 (2.0-8.3) x10*3/uL Absolute Nucleated RBC 0.000 (0.0-0.012) X10*3/uL Nucleated RBC % (auto) 0.0 (0.0-0.2) /100WBC Sodium 143 (135-145) mmol/L Potassium 4.2 (3.3-5.1) mmol/L Chloride 107 (96-108) mmol/L Carbon Dioxide 29 (22-29) mmol/L Anion Gap 11 L (12-20) BUN 15 (9-16) mg/dL Creatinine 1.09 (0.5-1.4) mg/dL Estim Creat Clear Calc 77.4 Estimated GFR > 60 Random Glucose 99 (60-115) mg/dL Calcium 9.7 D (8.4-10.2) mg/dL Total Bilirubin 0.5 (0.0-1.0) mg/dL AST 27 (5-37) U/L ALT 26 (0-40) U/L Alkaline Phosphatase 52 (39-117) U/L Total Protein 7.4 (6.5-8.0) g/dL Albumin 3.9 (3.5-5.0) g/dL CSF Tube Number 2 1 CSF Volume ML CSF Appearance CSF Color CSF WBC MM*3 CSF RBC MM*3 CSF Lymphocytes % CSF Appearance (b) CSF Total Protein (15-45) mg/dL CSF C.neoform/gat PCR (Not Detect.) CSF CMV DNA (PCR) (Not Detect.) CSF Enterovirus (PCR) (Not Detect.) CSF E. coli K1 (PCR) (Not Detect.) CSF H. influenzae (PCR) (Not Detect.) CSF HSV I (PCR) (Not Detect.) CSF HSV II (PCR) (Not Detect.) CSF HHV 6 (PCR) (Not Detect.) CSF L.monocytogenes PCR (Not Detect.) CSF N. meningitidis PCR (Not Detect.) CSF Parechovirus (PCR) (Not Detect.) CSF S. agalactiae (PCR) (Not Detect.) CSF S. pneumoniae (PCR) (Not Detect.) CSF VZV (PCR) (Not Detect.) COVID-19 ([facility]) (Negative) COVID-19 Clin Com 08/02/23 08/02/23 08/02/23 Range/Units 01:04 01:04 01:04 WBC (4.8-10.8) X10*3/uL RBC (4.60-5.80) X10*6/uL Hgb (14.0-18.0) g/dl Hct (42.0-52.0) % MCV (80.0-98.0) fL MCH (27.0-33.0) pg MCHC (31.0-36.0) g/dl RDW (11.0-16.0) % Plt Count (160-400) X10*3/uL MPV (9.4-12.4) fL Immature Gran % (Auto) (0.0-0.4) % Neut % (Auto) (45-73) % Lymph % (Auto) (20-40) % Rowan % (Auto) (2-11) % Eos % (Auto) (0-4) % Baso % (Auto) (0-2) % Lymph # (Auto) (1.2-4.9) X10*3/uL Rowan # (Auto) (0.1-1.2) X10*3/uL Eos # (Auto) (0.0-0.4) X10*3/uL Baso # (Auto) (0.0-0.2) X10*3/uL Abs Immat Gran (auto) (0.00-0.03) X10*3/uL Absolute Neuts (auto) (2.0-8.3) x10*3/uL Absolute Nucleated RBC (0.0-0.012) X10*3/uL Nucleated RBC % (auto) (0.0-0.2) /100WBC Sodium (135-145) mmol/L Potassium (3.3-5.1) mmol/L Chloride (96-108) mmol/L Carbon Dioxide (22-29) mmol/L Anion Gap (12-20) BUN (9-16) mg/dL Creatinine (0.5-1.4) mg/dL Estim Creat Clear Calc Estimated GFR Random Glucose (60-115) mg/dL Calcium (8.4-10.2) mg/dL Total Bilirubin (0.0-1.0) mg/dL AST (5-37) U/L ALT (0-40) U/L Alkaline Phosphatase (39-117) U/L Total Protein (6.5-8.0) g/dL Albumin (3.5-5.0) g/dL CSF Tube Number 4 CSF Volume 0.5 0.8 ML CSF Appearance CLEAR CLEAR CSF Color COLORLESS CSF WBC MM*3 CSF RBC MM*3 CSF Lymphocytes % CSF Appearance (b) CSF Total Protein (15-45) mg/dL CSF C.neoform/gat PCR (Not Detect.) CSF CMV DNA (PCR) (Not Detect.) CSF Enterovirus (PCR) (Not Detect.) CSF E. coli K1 (PCR) (Not Detect.) CSF H. influenzae (PCR) (Not Detect.) CSF HSV I (PCR) (Not Detect.) CSF HSV II (PCR) (Not Detect.) CSF HHV 6 (PCR) (Not Detect.) CSF L.monocytogenes PCR (Not Detect.) CSF N. meningitidis PCR (Not Detect.) CSF Parechovirus (PCR) (Not Detect.) CSF S. agalactiae (PCR) (Not Detect.) CSF S. pneumoniae (PCR) (Not Detect.) CSF VZV (PCR) (Not Detect.) COVID-19 ([facility]IA) (Negative) COVID-19 Clin Com 08/02/23 08/02/23 08/02/23 Range/Units 01:04 01:04 01:04 WBC (4.8-10.8) X10*3/uL RBC (4.60-5.80) X10*6/uL Hgb (14.0-18.0) g/dl Hct (42.0-52.0) % MCV (80.0-98.0) fL MCH (27.0-33.0) pg MCHC (31.0-36.0) g/dl RDW (11.0-16.0) % Plt Count (160-400) X10*3/uL MPV (9.4-12.4) fL Immature Gran % (Auto) (0.0-0.4) % Neut % (Auto) (45-73) % Lymph % (Auto) (20-40) % Rowan % (Auto) (2-11) % Eos % (Auto) (0-4) % Baso % (Auto) (0-2) % Lymph # (Auto) (1.2-4.9) X10*3/uL Rowan # (Auto) (0.1-1.2) X10*3/uL Eos # (Auto) (0.0-0.4) X10*3/uL Baso # (Auto) (0.0-0.2) X10*3/uL Abs Immat Gran (auto) (0.00-0.03) X10*3/uL Absolute Neuts (auto) (2.0-8.3) x10*3/uL Absolute Nucleated RBC (0.0-0.012) X10*3/uL Nucleated RBC % (auto) (0.0-0.2) /100WBC Sodium (135-145) mmol/L Potassium (3.3-5.1) mmol/L Chloride (96-108) mmol/L Carbon Dioxide (22-29) mmol/L Anion Gap (12-20) BUN (9-16) mg/dL Creatinine (0.5-1.4) mg/dL Estim Creat Clear Calc Estimated GFR Random Glucose (60-115) mg/dL Calcium (8.4-10.2) mg/dL Total Bilirubin (0.0-1.0) mg/dL AST (5-37) U/L ALT (0-40) U/L Alkaline Phosphatase (39-117) U/L Total Protein (6.5-8.0) g/dL Albumin (3.5-5.0) g/dL CSF Tube Number CSF Volume ML CSF Appearance CSF Color COLORLESS CSF WBC 5 8 MM*3 CSF RBC 30 2 MM*3 CSF Lymphocytes 100 % CSF Appearance (b) CSF Total Protein (15-45) mg/dL CSF C.neoform/gat PCR (Not Detect.) CSF CMV DNA (PCR) (Not Detect.) CSF Enterovirus (PCR) (Not Detect.) CSF E. coli K1 (PCR) (Not Detect.) CSF H. influenzae (PCR) (Not Detect.) CSF HSV I (PCR) (Not Detect.) CSF HSV II (PCR) (Not Detect.) CSF HHV 6 (PCR) (Not Detect.) CSF L.monocytogenes PCR (Not Detect.) CSF N. meningitidis PCR (Not Detect.) CSF Parechovirus (PCR) (Not Detect.) CSF S. agalactiae (PCR) (Not Detect.) CSF S. pneumoniae (PCR) (Not Detect.) CSF VZV (PCR) (Not Detect.) COVID-19 ([facility]IA) (Negative) COVID-19 Clin Com 02/01/24 02/01/24 Range/Units 01:04 01:26 WBC (4.8-10.8) X10*3/uL RBC (4.60-5.80) X10*6/uL Hgb (14.0-18.0) g/dl Hct (42.0-52.0) % MCV (80.0-98.0) fL MCH (27.0-33.0) pg MCHC (31.0-36.0) g/dl RDW (11.0-16.0) % Plt Count (160-400) X10*3/uL MPV (9.4-12.4) fL Immature Gran % (Auto) (0.0-0.4) % Neut % (Auto) (45-73) % Lymph % (Auto) (20-40) % Rowan % (Auto) (2-11) % Eos % (Auto) (0-4) % Baso % (Auto) (0-2) % Lymph # (Auto) (1.2-4.9) X10*3/uL Rowan # (Auto) (0.1-1.2) X10*3/uL Eos # (Auto) (0.0-0.4) X10*3/uL Baso # (Auto) (0.0-0.2) X10*3/uL Abs Immat Gran (auto) (0.00-0.03) X10*3/uL Absolute Neuts (auto) (2.0-8.3) x10*3/uL Absolute Nucleated RBC (0.0-0.012) X10*3/uL Nucleated RBC % (auto) (0.0-0.2) /100WBC Sodium (135-145) mmol/L Potassium (3.3-5.1) mmol/L Chloride (96-108) mmol/L Carbon Dioxide (22-29) mmol/L Anion Gap (12-20) BUN (9-16) mg/dL Creatinine (0.5-1.4) mg/dL Estim Creat Clear Calc Estimated GFR Random Glucose (60-115) mg/dL Calcium (8.4-10.2) mg/dL Total Bilirubin (0.0-1.0) mg/dL AST (5-37) U/L ALT (0-40) U/L Alkaline Phosphatase (39-117) U/L Total Protein (6.5-8.0) g/dL Albumin (3.5-5.0) g/dL CSF Tube Number CSF Volume ML CSF Appearance CSF Color CSF WBC MM*3 CSF RBC MM*3 CSF Lymphocytes 100 % CSF Appearance (b) Clear, Colorless CSF Total Protein 49.2 H (15-45) mg/dL CSF C.neoform/gat PCR Not Detected (Not Detect.) CSF CMV DNA (PCR) Not Detected (Not Detect.) CSF Enterovirus (PCR) Not Detected (Not Detect.) CSF E. coli K1 (PCR) Not Detected (Not Detect.) CSF H. influenzae (PCR) Not Detected (Not Detect.) CSF HSV I (PCR) Not Detected (Not Detect.) CSF HSV II (PCR) Not Detected (Not Detect.) CSF HHV 6 (PCR) Not Detected (Not Detect.) CSF L.monocytogenes PCR Not Detected (Not Detect.) CSF N. meningitidis PCR Not Detected (Not Detect.) CSF Parechovirus (PCR) Not Detected (Not Detect.) CSF S. agalactiae (PCR) Not Detected (Not Detect.) CSF S. pneumoniae (PCR) Not Detected (Not Detect.) CSF VZV (PCR) Not Detected (Not Detect.) COVID-19 ([facility]) Negative (Negative) COVID-19 Clin Com See Note Discharge Plan Discharge Clinical Impression: Headache Patient Disposition: Home, Self-Care Instructions: General Headache (ED) Additional Instructions: Your headache likely post encephalitis Take headache medication as prescribed At this time there is no signs of infection in your brain cultures of the CSF is pending will call you if positive Prescriptions: New tramadol 50 mg tablet 50 mg PO Q6H PRN (Reason: pain) Qty: 20 0RF No Action albuterol sulfate 90 mcg/actuation HFA aerosol inhaler 2 puff inhalation QID PRN (Reason: wheezing) gabapentin 100 mg Capsule 200 mg PO TID Qty: 180 0RF morphine 15 mg Tablet 15 mg PO Q6H PRN (Reason: Pain, Severe (Pain Scale 7-10)) Qty: 20 0RF Rx Instructions: Partial Fill upon patient request. acyclovir sodium 50 mg/mL Solution 750 mg IV Q8H 5 Days Qty: 225 0RF Rx Instructions: 5 days including today 07/23/23, ending 07/27/23 amlodipine [Norvasc] 10 mg tablet 10 mg PO DAILY Qty: 90 1RF Stand Alone Forms: Work/School Release Interventions: ED Discharge Assessment Last Done: 08/02/23 04:34 Discharge Date/Time: 08/02/23 04:41
[2023-08-01 18:41] LABS: MANUAL DIFF FLAG NO
[2023-08-01 18:42] LABS: Basophils Percent Auto 0.4 % (0-2); Eosinophils Absolute Auto 0.2 X10*3/uL (0.0-0.4); Eosinophils Percent Auto 1.5 % (0-4); Hematocrit 40.4 % (42.0-52.0); Hemoglobin 13.5 g/dl (14.0-18.0); Imm Gran Abs Auto 0.01 X10*3/uL (0.00-0.03); Imm Gran Pct Auto 0.1 % (0.0-0.4); Lymphocytes Absolute Auto 1.4 X10*3/uL (1.2-4.9); Lymphocytes Percent Auto 14.5 % (20-40); Mean Corpuscular HGB Conc 33.4 g/dl (31.0-36.0); Mean Corpuscular Hemoglobin 30.7 pg (27.0-33.0); Mean Corpuscular Volume 91.8 fL (80.0-98.0); Mean Platelet Volume 9.4 fL (9.4-12.4); Monocytes Percent Auto 9.7 % (2-11); Neutrophils Absolute Auto 7.3 x10*3/uL (2.0-8.3); Neutrophils Percent Auto 73.8 % (45-73); Platelet Count 262 X10*3/uL (160-400); Red Cell Distribution Width 14.3 % (11.0-16.0); White Blood Count 9.9 X10*3/uL (4.8-10.8)
[2023-08-01 18:54] LABS: Alanine Aminotransferase 26 U/L (0-40); Albumin Level 3.9 g/dL (3.5-5.0); Alkaline Phosphatase 52 U/L (39-117); Anion Gap 11 (12-20); Aspartate Amino Transferase 27 U/L (5-37); Bilirubin Total 0.5 mg/dL (0.0-1.0); Blood Urea Nitrogen 15 mg/dL (9-16); Calcium 9.7 mg/dL (8.4-10.2); Carbon Dioxide 29 mmol/L (22-29); Chloride 107 mmol/L (96-108); Creatinine Clr Calc Pharmacy 77.4; Estimated Glomerular Filt Rate > 60; Glucose Random 99 mg/dL (60-115); Potassium 4.2 mmol/L (3.3-5.1); Sodium 143 mmol/L (135-145); Total Protein 7.4 g/dL (6.5-8.0)
[2023-08-01 23:56] VITALS: BP 164/88; PULSE 73; RESP 20; TEMP 36.8; O2SAT 94
[2023-08-02 00:45] VITALS: PULSE 73; RESP 16; TEMP 36.8; O2SAT 98
[2023-08-02 01:14] LABS: CSF Appearance Clear, Colorless; CSF Tube # 2
[2023-08-02 01:38] LABS: Total Protein CSF 49.2 mg/dL (15-45)
[2023-08-02 01:56] LABS: IDNOW Serial# 152EDE1D
[2023-08-02 01:57] LABS: COVID-19 Test Negative (Negative)
[2023-08-02 02:40] LABS: Appearance CSF CLEAR; CSF Tube # 1; CSF Volume 0.5 ML; Color CSF COLORLESS
[2023-08-02] MEDS: traMADoL HCL 50 MG TABLET PO (02:40)
[2023-08-02 02:41] LABS: Cryptococcus neoformans/gattii Not Detected (Not Detect.); Enterovirus Not Detected (Not Detect.); Escherichia coli K1 Not Detected (Not Detect.); Haemophilus influenzae Not Detected (Not Detect.); Herpes simplex virus 1 Not Detected (Not Detect.); Herpes simplex virus 2 Not Detected (Not Detect.); Human herpesvirus 6 Not Detected (Not Detect.); Human parechovirus Not Detected (Not Detect.); Listeria monocytogenes Not Detected (Not Detect.); Neisseria meningitidis Not Detected (Not Detect.); Red Blood Cell CSF 30 MM*3; Streptococcus agalactiae Not Detected (Not Detect.); Streptococcus pneumoniae Not Detected (Not Detect.); Varicella zoster virus Not Detected (Not Detect.)
[2023-08-02 03:12] LABS: Lymphocytes CSF 100 %; White Blood Cell CSF 5 MM*3
[2023-08-02 03:13] LABS: Appearance CSF CLEAR; CSF Tube # 4; CSF Volume 0.8 ML; Color CSF COLORLESS; Lymphocytes CSF 100 %; Red Blood Cell CSF 2 MM*3; White Blood Cell CSF 8 MM*3
== END 2023-08-02 04:41 | disposition home or self-care (01) ==
PROVIDERS: Physician Assistant; Emergency Provider Internal Medicine; PCP Internal Medicine
DX: R51.9 Headache, unspecified (principal); Z11.52 Encounter for screening for COVID-19; Z79.899 Other long term (current) drug therapy
CPT/HCPCS: 36415; 62270; 70450; 72125; 80053; 84157; 85025; 87015; 87070; 87205; 87483; 87635; 89051; 99284